=== PATIENT | male | born 1935 | race Caucasian/White ===

== ENCOUNTER 2018-05-19 17:23 | Inpatient (IN) | payer OTHER ==
--- NOTE | 2018-05-19 17:33 | PDOC ---
History of Present Illness - General Chief Complaint: Respiratory Distress Stated Complaint: REPIRATORY DISTRESS Time Seen by Provider: 05/19/18 17:32 - History of Present Illness Initial Comments: The patient is a 83 year old male with PMH of HTN, AFIB, heart failure, COPD ( Home BIPap), GERD, and dysphagia sent in from [facility] for respiratory distress while on his usual BiPAP. He presented to our EER in severe respiratory distress and SATing in the low 90s on is Bipap, he was also in AFib with RVR. He was very confused when he came into our ED and unable to provide history. His nephew and POA did indicate that he is DNR/ DNI over the phone. No CO report of fevers, chills, chest pain, or other symptoms. 05/19/18 18:40 Past History - Past Medical History Allergies/Adverse Reactions: Allergies Allergy/AdvReac Type Severity Reaction Status Date / Time No Known Allergies Allergy Verified 05/19/18 17:33 Home Medications: Ambulatory Orders Acetaminophen [Tylenol] 650 mg PO QID PRN 05/19/18 Apixaban [Eliquis -] 5 mg PO BID 05/19/18 Aspirin [Aspirin EC] 81 mg PO DAILY 05/19/18 Atorvastatin Ca [Lipitor] 80 mg PO HS 05/19/18 Budesonide 1 mg IH BID 05/19/18 Docusate Sodium [Colace] 300 mg PO BID 05/19/18 Famotidine [Pepcid] 20 mg PO BID 05/19/18 Furosemide [Lasix] 40 mg PO BID 05/19/18 Insulin Aspart [Novolog] 0 unit SQ ASDIR 05/19/18 Insulin Glargine,Hum.rec.anlog [Lantus Solostar] 25 unit SQ DAILY 05/19/18 Magnesium 400 mg PO BID 05/19/18 Methimazole 5 mg PO DAILY 05/19/18 Metoprolol Tartrate 25 mg PO BID 05/19/18 Multivitamin [Multiple Vitamins] 1 each PO DAILY 05/19/18 Nystatin Cream [Mycostatin Cream -] 1 applic TP BID 05/19/18 Potassium Chloride [K-Dur -] 20 meq PO DAILY 05/19/18 Sennosides [Senna] 17.2 mg PO BID 05/19/18 Review of Systems - Review of Systems Able to Perform ROS?: No (altered) *Physical Exam - Physical Exam General Appearance: Yes: Nourished, Appropriately Dressed, Apparent Distress, Moderate Distress HEENT: positive: EOMI, ANTWON, Normal ENT Inspection, Normal Voice Neck: positive: Trachea midline, Normal Thyroid, Supple. negative: Tender, Rigid Respiratory/Chest: positive: Respiratory Distress, Accessory Muscle Use, Labored Respiration, Rapid RR, Decreased Breath Sounds, Wheezing. negative: Chest Tender, Lungs Clear, Normal Breath Sounds Cardiovascular: positive: Tachycardia, Irregularly Irregular Gastrointestinal/Abdominal: positive: Normal Bowel Sounds, Flat, Soft Lymphatic: negative: Adenopathy, Tenderness Musculoskeletal: positive: Normal Inspection. negative: Decreased Range of Motion Extremity: positive: Normal Capillary Refill, Normal Inspection, Normal Range of Motion. negative: Tender Integumentary: positive: Normal Color, Dry, Warm Neurologic: positive: Alert, Normal Mood/Affect, Normal Response, Motor Strength 5/5. negative: Fully Oriented (AO to person) ED Treatment Course - LABORATORY CBC & Chemistry Diagram: 05/20/18 05:30 05/20/18 05:30 Medical Decision Making - Medical Decision Making 83 year old male with PMH of COPD presenting with acute hypoxic respiratory failure and suspected CO2 retention. He improved significantly on BiPAP settings and his repeat mental exam was AOx2 (person and time). ABG corroborates hypercarbic respiratory failure with possible CO2 narcosis. He is DNR/ DNI per his proxy/ nephew over the phone. Labs not corroborating infectious pathology. Patient pending telemetry admission on sign out to Dr. Ni. 05/19/18 18:46 *DC/Admit/Observation/Transfer Diagnosis at time of Disposition: Hypercapnic respiratory failure Qualifiers: Chronicity: acute Qualified Code(s): J96.02 - Acute respiratory failure with hypercapnia CHF (congestive heart failure) Qualifiers: Heart failure type: unspecified Heart failure chronicity: acute on chronic Qualified Code(s): I50.9 - Heart failure, unspecified UTI (urinary tract infection) Qualifiers: Urinary tract infection type: site unspecified Hematuria presence: without hematuria Qualified Code(s): N39.0 - Urinary tract infection, site not specified - Discharge Dispostion Condition at time of disposition: Guarded Decision to Admit order: Yes - Referrals - Patient Instructions - Post Discharge Activity
--- NOTE | 2018-05-19 17:33 | PDOC ---
Attending Attestation - HPI HPI: 05/19/18 17:51 The patient is a 83 year old male with a PMH of HTN, AFIB, heart failure, COPD, GERD, and dysphagia sent in from [facility] for respiratory distress on BiPAP. Patient was found to be satting in the 80s at the DC and came up to the 90s before leaving the DC. Patient is unable to provide any further history. - Physicial Exam PE: 05/19/18 17:51 ADULT PHYSICAL EXAM Constitutional: Awake, alert, oriented x1 (to person). (+) In respiratory stress. (+) Pale. Head: Normocephalic. Atraumatic Eyes: PERRL. EOMI. Conjunctivae are not pale. ENT: Mucous membranes are moist and intact. Posterior pharynx without exudates or erythema. Uvula midline. Neck: Supple. Full ROM. No lymphadenopathy. Cardiovascular: (+) Irregular rate and rhythm. S1, S2 regular. Distal pulses are 2+ and symmetric. Pulmonary/Chest: (+) In respiratory distress. (+) Tachypneic. Abdominal: Soft and non-distended. There is no tenderness. No rebound, guarding or rigidity. (+) Peg tube in place, no surrounding erythema or drainage. Musculoskeletal: (+) Trace edema in the right lower extremity and 1+ pitting edema in the left lower extremity. Skin: Skin is warm and dry. No petechiae. No purpura. Neurological: Alert and oriented to person. Cranial nerves II-XII are grossly intact. Normal speech. Strength is grossly symmetric. No sensory deficits. Psychiatric: Good eye contact. Normal interaction, affect and behavior. <Ana Laura Vega - Last Filed: 05/19/18 17:54> - Resident Resident Name: Jovita Hoffmann - ED Attending Attestation I have performed the following: I have examined & evaluated the patient, The case was reviewed & discussed with the resident, I agree w/resident's findings & plan, Exceptions are as noted - Critical Care Time Total Critical Care Time: 35 Critical Care Statement: The care of this patient involved high complexity decision making to prevent further life threatening deterioration of the patient 's condition and/or to evaluate & treat vital organ system(s) failure or risk of failure. - Medical Decision Making 05/19/18 17:33 IDr. Cyndy, DO, attest that this document has been prepared under my direction and personally reviewed by me in its entirety. I further attest, that it accurately reflects all work, treatment, procedures and medical decision -making performed by me. 05/19/18 17:45 a/p: 83yo male from [facility] with afib rvr and resp distress -per notes, pulse ox 80s at [facility], arrives with medics on bipap -pt with hx of copd, resp distress, resp failure -pt arrives aaox1 -pt in afib rvr and copd exacerbation -labs, ekg, cxr, abg -started on bipap upon arrival, IV placed -given duoneb upon arrival for resp distress -concern for copd exacerbation, afib rvr -will give av isidro blocking agent -pt will need admission -will send cultures 05/19/18 17:51 cxr shows acute pulm edema 05/19/18 17:58 re-eval: pt feeling better HR 98 after cardizem breathing improved, 96% on bipap pt more awake, aaox2 - person and time per nephew who is POA discussion with the resident, pt is DNR/I 05/19/18 18:52 pt with hypercapnic resp failure better on bipap jvd and pitting edema- chf exacerbation 05/19/18 20:24 nephew at the bedside who completed DNR/I paperwork 05/19/18 20:24 pt feeling much better UTI on labs poss underlying pna on cxr- broad spectrum abx ordered recent stent placed on NYP- nephew provided dc paperwork 05/19/18 20:40 case discussed with [employer] from [facility] who accepts pt to service <Cyndy Ni - Last Filed: 05/19/18 20:45> *DC/Admit/Observation/Transfer <Ana Laura Vega - Last Filed: 05/19/18 17:54> - Discharge Dispostion Decision to Admit order: Yes <Cyndy Ni - Last Filed: 05/19/18 20:45> Diagnosis at time of Disposition: Hypercapnic respiratory failure, CHF (congestive heart failure), UTI (urinary tract infection) - Discharge Dispostion Condition at time of disposition: Guarded - Referrals Referrals: Eri Garcia MD [Primary Care Provider] - - Patient Instructions - Post Discharge Activity Heart Score/ECG Review - ECG Intrepretation Comment:: 05/19/18 17:47 afib at 124, nl axis, st depression/t wave inversins lateral leads, abnl ekg <Cyndy Ni - Last Filed: 05/19/18 20:45>
[2018-05-19] MEDS ORDERED: methylPREDNISolone NA SUCC 125 MG/2 ML VIAL IVPB ONE (17:43)
[2018-05-19] MEDS ORDERED: ALBUTEROL SO4 2.5/IPRATROPIUM 0.5 INH SOL 3 ML VIAL.NEB. NEB ONE (17:43)
[2018-05-19] MEDS ORDERED: dilTIAZem HCL 125 MG/25 ML - 25 ML VIAL ONE (17:45)
[2018-05-19] MEDS ORDERED: methylPREDNISolone NA SUCC 125 MG/2 ML VIAL ONE (17:45)
[2018-05-19] MEDS ORDERED: FUROSEMIDE 40 MG/4 ML INJECTABLE VIAL IVPUSH ONE (17:51)
[2018-05-19 17:55] LABS: ARTERIAL BLD GAS O2 SATURATION 93.7 % (95-98); ARTERIAL BLOOD GAS BASE EXCESS 4.1 meq/l (-2-2); ARTERIAL BLOOD GAS PCO2 68.1 mmHg (35-45); ARTERIAL BLOOD GAS PO2 77.6 mmHg (80-105); ARTERIAL BLOOD GAS pH 7.29 (7.35-7.45)
[2018-05-19 17:59] LABS: ALLENS TEST POSITIVE
[2018-05-19] MEDS ORDERED: FUROSEMIDE 40 MG/4 ML INJECTABLE VIAL ONE (18:02)
[2018-05-19 18:34] LABS: BASO % 0.6 % (0-2.0); EOS % 3.8 % (0-4.5); HEMOGLOBIN 11.1 GM/dL (11.7-16.9); LYMPH % 16.3 % (8-40); MCH 29.9 pg (25.7-33.7); MCHC 31.7 g/dl (32.0-35.9); MEAN CELL VOLUME 94.4 fl (80-96); MEAN PLT VOLUME 9.3 fl (7.5-11.1); MONO % 6.5 % (3.8-10.2); NEUT % 72.8 % (42.8-82.8); PLATELET COUNT 232 K/MM3 (134-434); RBC 3.71 M/mm3 (4.00-5.60); RDW 17.9 % (11.9-15.9); WHITE BLOOD COUNT 7.9 K/mm3 (4.0-10.0)
[2018-05-19] MEDS ORDERED: dilTIAZem HCL 50 MG/10 ML - 10 ML VIAL IVPUSH ONE (18:35)
[2018-05-19 18:41] LABS: EPI CELLS 1.4 /HPF (0-5/HPF); PH,URINE 5.5 (5.0-8.0); URINE APPEARANCE TURBID; URINE BACTERIA 2198.6 /hpf (NEGATIVE); URINE BILIRUBIN NEGATIVE (NEGATIVE); URINE CASTS 1 /hpf (0-8); URINE COLOR YELLOW; URINE GLUCOSE (UA) NEGATIVE (NEGATIVE); URINE KETONE NEGATIVE (NEGATIVE); URINE LEUK ESTERASE 3+ (NEGATIVE); URINE NITRITE POSITIVE (NEGATIVE); URINE PROTEIN TRACE (NEGATIVE); URINE RBC 23 /hpf (0-4); URINE UROBILINOGEN 0.2 mg/dL (0.2-1.0); URINE WBC 613 /hpf (0-5)
[2018-05-19 18:49] LABS: INR 1.48 (0.83-1.09); PROTHROMBIN TIME (PATIENT) 17.5 SEC (9.7-13.0)
[2018-05-19 18:51] LABS: ACTIVATED PTT 36.4 SECONDS (25.2-36.5)
[2018-05-19 19:16] LABS: ALBUMIN 3.1 g/dl (3.4-5.0); ALK PHOS 59 U/L (45-117); ANION GAP 5 MMOL/L (8-16); BILIRUBIN,TOTAL 0.2 mg/dL (0.2-1); BLOOD UREA NITROGEN 19 mg/dL (7-18); CALCIUM 8.2 mg/dL (8.5-10.1); CHLORIDE 102 mmol/L (98-107); CO2 36 mmol/L (21-32); CREATININE 1.1 mg/dL (0.55-1.3); MAGNESIUM 2.6 mg/dL (1.8-2.4); N-TERMINAL BNP 1474.7 pg/ml (5-450); POTASSIUM 4.7 mmol/L (3.5-5.1); SGOT/AST 25 U/L (15-37); SGPT/ALT 34 U/L (13-61); SODIUM 143 mmol/L (136-145); TOT PROT 6.7 g/dl (6.4-8.2)
[2018-05-19 19:30] LABS: GLUCOSE,RANDOM 301 mg/dL (74-106)
[2018-05-19] MEDS ORDERED: VANCOMYCIN 1 GM in D5W (PRE-DOCKED) 1,000 MG/250 ML IVPB ONE (20:02)
[2018-05-19] MEDS ORDERED: PIPERACILLIN/TAZOB 4.5 GM 4.5 GM in DEXTROSE 5%-WATER 100 ML IVPB ONE (20:02)
[2018-05-19] MEDS ORDERED: VANCOMYCIN 1 GRAM (PRE-DOCKED) 1,000 MG/250 ML BAG IVPB ONE (20:15)
[2018-05-19] MEDS ORDERED: PIPERACILLIN/TAZOB 4.5 GM 4.5 GM/100 ML BAG IVPB ONE (20:15)
[2018-05-19 21:08] LABS: ARTERIAL BLD GAS O2 SATURATION 98.8 % (95-98); ARTERIAL BLOOD GAS BASE EXCESS 6.1 meq/l (-2-2); ARTERIAL BLOOD GAS PCO2 61.2 mmHg (35-45); ARTERIAL BLOOD GAS PO2 120 mmHg (80-105); ARTERIAL BLOOD GAS pH 7.34 (7.35-7.45)
[2018-05-19 21:09] LABS: ALLENS TEST POSITIVE; CARBOXYHEMOGLOBIN 1.2 % (0-2)
[2018-05-20] MEDS ORDERED: LISINOPRIL 20 MG TABLET (FP) ONE (00:04)
[2018-05-20] MEDS ORDERED: MAGNESIUM OXIDE 400 MG TABLET (FP) ONE (00:09)
[2018-05-20] MEDS ORDERED: APIXABAN 5 MG TABLET PO ONE (00:09)
[2018-05-20] MEDS ORDERED: DOCUSATE SODIUM 100 MG CAPSULE (FP) PO ONE (00:10)
[2018-05-20] MEDS ORDERED: METOPROLOL TARTRATE 25 MG TABLET (FP) ONE (00:10)
[2018-05-20] MEDS: DOCUSATE SODIUM 100 MG CAPSULE (FP) PO SCH ×3 (00:29→23:48)
[2018-05-20] MEDS: ATORVASTATIN CA 80 MG TABLET (FP) PO SCH ×2 (00:29→23:49)
[2018-05-20] MEDS: METOPROLOL TARTRATE 25 MG TABLET (FP) PO SCH ×3 (00:29→23:48)
[2018-05-20] MEDS: MAGNESIUM OXIDE 400 MG TABLET (FP) PO SCH ×3 (00:29→23:48)
[2018-05-20] MEDS: APIXABAN 5 MG TABLET PO SCH ×3 (00:29→23:48)
[2018-05-20] MEDS: NYSTATIN 100,000 UNIT/GM TOPICAL CREAM 15 GM TUBE TP SCH ×3 (00:29→23:49)
--- NOTE | 2018-05-20 00:34 | HP ---
CHIEF COMPLAINT: here from [facility] for shortness of breath PCP: HISTORY OF PRESENT ILLNESS: 83 year old male with past medical history of hypertension, atrial fibrillation (on eliquis),congestive heart failure(diastolic versus systolic unknown) , COPD , GERD, and dysphagia who presents from [facility] for respiratory distress with hypoxia. Patient was found to have shortness of breath with hypoxia with oxygen saturation in the 80's in the [place]. Patient is a poor historian and unable to provide a history. Upon presentation he was found to be in atrial fibrillation with RVR and acute hypercapnic respiratory failure with hypoxia requiring bipap with improvement in shortness of breath and oxygen saturations. Labs notable for bNP of 1474. He was give duo nebulizer treatment, one dosage of IV lasix and IV methylprednisolone. He was also found to have a UTI and treated to Vancomycin and zosyn. He is being admitted to telemetry for further medical and cardiac management. Recent Travel: denies PAST MEDICAL HISTORY: as above PAST SURGICAL HISTORY: none Social History: Smoking:denies Alcohol:denies Drugs: denies Family History:noncontributory Allergies No Known Allergies Allergy (Verified 05/19/18 17:33) HOME MEDICATIONS: Home Medications Medication Instructions Recorded Acetaminophen [Tylenol] 650 mg PO QID PRN 05/19/18 Apixaban [Eliquis -] 5 mg PO BID 05/19/18 Aspirin [Aspirin EC] 81 mg PO DAILY 05/19/18 Atorvastatin Ca [Lipitor] 80 mg PO HS 05/19/18 Budesonide 1 mg IH BID 05/19/18 Docusate Sodium [Colace] 300 mg PO BID 05/19/18 Famotidine [Pepcid] 20 mg PO BID 05/19/18 Furosemide [Lasix] 40 mg PO BID 05/19/18 Insulin Aspart [Novolog] 0 unit SQ ASDIR 05/19/18 Insulin Glargine,Hum.rec.anlog 25 unit SQ DAILY 05/19/18 [Lantus Solostar] Magnesium 400 mg PO BID 05/19/18 Methimazole 5 mg PO DAILY 05/19/18 Metoprolol Tartrate 25 mg PO BID 05/19/18 Multivitamin [Multiple Vitamins] 1 each PO DAILY 05/19/18 Nystatin Cream [Mycostatin Cream -] 1 applic TP BID 05/19/18 Potassium Chloride [K-Dur -] 20 meq PO DAILY 05/19/18 Sennosides [Senna] 17.2 mg PO BID 05/19/18 REVIEW OF SYSTEMS CONSTITUTIONAL: Absent: fever, chills, diaphoresis, generalized weakness, malaise, loss of appetite, weight change HEENT: Absent: rhinorrhea, nasal congestion, throat pain, throat swelling, difficulty swallowing, mouth swelling, ear pain, eye pain, visual changes CARDIOVASCULAR: Absent: chest pain, syncope, palpitations, irregular heart rate, lightheadedness , peripheral edema RESPIRATORY: Absent: cough, shortness of breath, dyspnea with exertion, orthopnea, wheezing, stridor, hemoptysis GASTROINTESTINAL: Absent: abdominal pain, abdominal distension, nausea, vomiting, diarrhea, constipation, melena, hematochezia GENITOURINARY: Absent: dysuria, frequency, urgency, hesitancy, hematuria, flank pain, genital pain MUSCULOSKELETAL: Absent: myalgia, arthralgia, joint swelling, back pain, neck pain SKIN: Absent: rash, itching, pallor HEMATOLOGIC/IMMUNOLOGIC: Absent: easy bleeding, easy bruising, lymphadenopathy, frequent infections ENDOCRINE: Absent: unexplained weight gain, unexplained weight loss, heat intolerance, cold intolerance NEUROLOGIC: Absent: headache, focal weakness or paresthesias, dizziness, unsteady gait, seizure, mental status changes, bladder or bowel incontinence PSYCHIATRIC: Absent: anxiety, depression, suicidal or homicidal ideation, hallucinations. PHYSICAL EXAMINATION Vital Signs - 24 hr 05/19/18 05/19/18 05/19/18 17:25 17:28 17:42 Temperature 99.0 F Pulse Rate 146 H Pulse Rate [ 132 H Apical] Respiratory 30 H 24 H Rate Blood Pressure 124/99 Blood Pressure [Left Arm] O2 Sat by Pulse 99 88 L Oximetry (%) 05/19/18 05/19/18 05/19/18 17:48 17:55 18:00 Temperature Pulse Rate Pulse Rate [ 98 H Apical] Respiratory 22 H Rate Blood Pressure Blood Pressure 115/72 [Left Arm] O2 Sat by Pulse 99 99 93 L Oximetry (%) 05/19/18 05/19/18 05/19/18 18:25 20:19 23:04 Temperature Pulse Rate Pulse Rate [ 84 Apical] Respiratory 22 H Rate Blood Pressure Blood Pressure 121/70 [Left Arm] O2 Sat by Pulse 99 100 96 Oximetry (%) GENERAL: awake, alert, and oriented to self and able to tell me who the president is, unable to tell me where he is HEAD: normal EYES: pupils equal, round and reactive to light EARS, NOSE, THROAT: ears normal, nares patent, oropharynx clear without exudates NECK: normal range of motion LUNGS: dimished breath sounds no rales no wheezing no use of accessory muscles HEART: irregular rate and rhythm, normal S1 and S2 ABDOMEN: soft, nontender, not distended, normoactive bowel sounds, no guarding MUSCULOSKELETAL: limited range of motion due to wekness UPPER EXTREMITIES: 2+ pulses, warm, well-perfused no cyanosis LOWER EXTREMITIES: no pitting edema cool to touch NEUROLOGICAL: no neuro focal deficits PSYCHIATRIC: appears appropriate SKIN: dry, normal turgor, no rashes or lesions noted, normal capillary refill. Laboratory Results - last 24 hr 05/19/18 05/19/18 05/19/18 17:30 17:30 17:30 WBC 7.9 RBC 3.71 L Hgb 11.1 L Hct 35.0 L MCV 94.4 MCH 29.9 MCHC 31.7 L RDW 17.9 H Plt Count 232 MPV 9.3 Absolute Neuts (auto) 5.8 Neutrophils % 72.8 Lymphocytes % 16.3 Monocytes % 6.5 Eosinophils % 3.8 Basophils % 0.6 Nucleated RBC % 0 PT with INR 17.50 H INR 1.48 H PTT (Actin FS) 36.4 Anticoagulation Therapy Puncture Site ABG pH ABG pCO2 at Pt Temp ABG pO2 at Pt Temp ABG HCO3 ABG O2 Sat (Measured) ABG O2 Content ABG Base Excess Jayme Test Carboxyhemoglobin Methemoglobin O2 Delivery Device Oxygen Flow Rate Vent Mode Vent Rate Mechanical Rate Pressure Support Vent Sodium Potassium Chloride Carbon Dioxide Anion Gap BUN Creatinine Creat Clearance w eGFR Random Glucose Lactic Acid 1.8 Calcium Magnesium Total Bilirubin AST ALT Alkaline Phosphatase Creatine Kinase Troponin I B-Natriuretic Peptide Total Protein Albumin Urine Color Urine Appearance Urine pH Ur Specific Elkins Urine Protein Urine Glucose (UA) Urine Ketones Urine Blood Urine Nitrite Urine Bilirubin Urine Urobilinogen Ur Leukocyte Esterase Urine WBC (Auto) Urine RBC (Auto) Urine Casts (Auto) U Epithel Cells (Auto) Urine Bacteria (Auto) 04/10/19 04/10/19 04/10/19 17:30 17:30 17:42 WBC RBC Hgb Hct MCV MCH MCHC RDW Plt Count MPV Absolute Neuts (auto) Neutrophils % Lymphocytes % Monocytes % Eosinophils % Basophils % Nucleated RBC % PT with INR INR PTT (Actin FS) Anticoagulation Therapy No Result Required. Puncture Site Right radial ABG pH 7.29 L ABG pCO2 at Pt Temp 68.1 H ABG pO2 at Pt Temp 77.6 L ABG HCO3 31.9 H ABG O2 Sat (Measured) 93.7 L ABG O2 Content 15.1 ABG Base Excess 4.1 H Jayme Test Positive Carboxyhemoglobin 1.0 Methemoglobin 0.1 O2 Delivery Device No Result Required. Oxygen Flow Rate Yes Vent Mode No Result Required. Vent Rate No Result Required. Mechanical Rate No Result Required. Pressure Support Vent No Result Required. Sodium 143 Potassium 4.7 Chloride 102 Carbon Dioxide 36 H Anion Gap 5 L BUN 19 H Creatinine 1.1 Creat Clearance w eGFR 63.62 Random Glucose 301 H* Lactic Acid Calcium 8.2 L Magnesium 2.6 H Total Bilirubin 0.2 AST 25 ALT 34 Alkaline Phosphatase 59 Creatine Kinase 66 Troponin I 0.04 B-Natriuretic Peptide 1474.7 H Total Protein 6.7 Albumin 3.1 L Urine Color Yellow Urine Appearance Turbid Urine pH 5.5 Ur Specific Elkins 1.012 Urine Protein Trace Urine Glucose (UA) Negative Urine Ketones Negative Urine Blood 2+ H Urine Nitrite Positive H Urine Bilirubin Negative Urine Urobilinogen 0.2 Ur Leukocyte Esterase 3+ H Urine WBC (Auto) 613 Urine RBC (Auto) 23 Urine Casts (Auto) 1 U Epithel Cells (Auto) 1.4 Urine Bacteria (Auto) 2198.6 05/19/18 20:00 WBC RBC Hgb Hct MCV MCH MCHC RDW Plt Count MPV Absolute Neuts (auto) Neutrophils % Lymphocytes % Monocytes % Eosinophils % Basophils % Nucleated RBC % PT with INR INR PTT (Actin FS) Anticoagulation Therapy No Result Required. Puncture Site Right brachial ABG pH 7.34 L ABG pCO2 at Pt Temp 61.2 H ABG pO2 at Pt Temp 120 H ABG HCO3 32.5 H ABG O2 Sat (Measured) 98.8 H ABG O2 Content 50.0 H ABG Base Excess 6.1 H Jayme Test Positive Carboxyhemoglobin 1.2 Methemoglobin 0.2 O2 Delivery Device No Result Required. Oxygen Flow Rate Yes Vent Mode No Result Required. Vent Rate No Result Required. Mechanical Rate No Result Required. Pressure Support Vent No Result Required. Sodium Potassium Chloride Carbon Dioxide Anion Gap BUN Creatinine Creat Clearance w eGFR Random Glucose Lactic Acid Calcium Magnesium Total Bilirubin AST ALT Alkaline Phosphatase Creatine Kinase Troponin I B-Natriuretic Peptide Total Protein Albumin Urine Color Urine Appearance Urine pH Ur Specific Elkins Urine Protein Urine Glucose (UA) Urine Ketones Urine Blood Urine Nitrite Urine Bilirubin Urine Urobilinogen Ur Leukocyte Esterase Urine WBC (Auto) Urine RBC (Auto) Urine Casts (Auto) U Epithel Cells (Auto) Urine Bacteria (Auto) ASSESSMENT/PLAN: 83 year old male with past medical history of hypertension, atrial fibrillation (on eliquis),congestive heart failure(diastolic versus systolic unknown) , COPD , GERD, and dysphagia who presents from [facility] for respiratory distress with hypoxia. Acute hypercapnic respiratory failure with hypoxia in setting of significantly elevated BNP. Patient required bipap with improvement in shortness of breath and oxygen saturations. CXR with congestive changes and superimposed infiltrate and fluid. Pulmonary consulted - Dr. Hernandez . Fluid Overload BNP elevated at 1474. He received one dosage of IV lasix 40mg. Continue with IV lasix 40mg twice daily w/ close monitoring of renal studies and electrolytes. Check echocardiogram. Cardiology consulted-Dr. Gallardo. Atrial Fibrillation (Chronic) Rate controlled on metoprolol tartrate. Continue eliquis for anticoagulation. TSH pending. UTI Afebrile, normal creatinine, WBC and lactic acid level. Received one dosage of IV vancomycin and pippercillin. Patient has a terrell which was placed in ER for strict I&O's. Continue with IV zosyn Urine and blood cultures pending. ID- Dr. Douglas consulted. DM/Hyperglycemia Accucheks before meals and at bedtime. Continue w/insulin (levimer) 25Units before bedtime and novolog as per SSI. DVT Prophylaxis Patient is on systemic anticoagulation, SCD's Patient is DNR/DNI Visit type - Emergency Visit Emergency Visit: No - New Patient This patient is new to me today: Yes Date on this admission: 05/20/18 - Critical Care Critical Care patient: No
[2018-05-20] MEDS ORDERED: ALBUTEROL SO4 0.083% IH SOL 2.5 MG/3 ML VIAL.NEB. NEB PRN (01:22)
[2018-05-20] MEDS ORDERED: PIPERACILLIN/TAZOB 2.25 GM 2.25 GM/50 ML BAG IVPB ONE ×2 (03:10→10:50)
[2018-05-20] MEDS: PIPERACILLIN/TAZOB 2.25 GM 2.25 GM in DEXTROSE 5%-WATER - 50 ML IVPB SCH ×3 (03:21→15:56)
[2018-05-20 06:13] LABS: BASO % 0.2 % (0-2.0); HEMATOCRIT 31.4 % (35.4-49); HEMOGLOBIN 10.3 GM/dL (11.7-16.9); MCH 30.4 pg (25.7-33.7); MCHC 32.9 g/dl (32.0-35.9); MEAN CELL VOLUME 92.5 fl (80-96); MEAN PLT VOLUME 8.9 fl (7.5-11.1); MONO % 1.5 % (3.8-10.2); NEUT % 91.3 % (42.8-82.8); PLATELET COUNT 206 K/MM3 (134-434); RBC 3.39 M/mm3 (4.00-5.60); RDW 17.2 % (11.9-15.9); WHITE BLOOD COUNT 7.5 K/mm3 (4.0-10.0)
[2018-05-20 06:47] LABS: ANION GAP 5 MMOL/L (8-16); BLOOD UREA NITROGEN 19 mg/dL (7-18); CALCIUM 8.1 mg/dL (8.5-10.1); CHLORIDE 103 mmol/L (98-107); CO2 35 mmol/L (21-32); GLUCOSE,RANDOM 274 mg/dL (74-106); MAGNESIUM 2.4 mg/dL (1.8-2.4); POTASSIUM 4.5 mmol/L (3.5-5.1); SODIUM 143 mmol/L (136-145)
[2018-05-20] MEDS ORDERED: FUROSEMIDE 40 MG/4 ML INJECTABLE VIAL ONE ×2 (06:59→13:45)
[2018-05-20] MEDS ORDERED: INSULIN (LEVEMIR) 100 UNITS/ML UNITS SQ ONE (07:00)
[2018-05-20] MEDS: INSULIN (LEVEMIR) 100 UNITS/ML UNITS SQ SCH (07:02)
[2018-05-20] MEDS: FUROSEMIDE 40 MG/4 ML INJECTABLE VIAL IVPUSH SCH ×2 (07:02→13:42)
[2018-05-20] MEDS ORDERED: BUDESONIDE 0.5 MG/2 ML INH SUSP VIAL NEB SCH (08:00)
[2018-05-20] MEDS: ASPIRIN COATED 81 MG TABLET.EC PO SCH (09:55)
[2018-05-20] MEDS: POTASSIUM CHLORIDE TABS 20 MEQ TABLET.ER (FP) PO SCH (09:56)
[2018-05-20] MEDS: PANTOPRAZOLE 40 MG TABLET (FP) PO SCH (09:57)
[2018-05-20] MEDS: MULTIVITAMINS (DAILY MVI) TABLET (FP) PO SCH (09:57)
[2018-05-20] MEDS ORDERED: METHIMAZOLE 5 MG TABLET (FP) PO SCH (10:00)
[2018-05-20 11:09] LABS: ANISOCYTOSIS 1+; MACROCYTOSIS 1+; OVALOCYTE 1+; PLATELET ESTIMATE NORMAL
--- NOTE | 2018-05-20 11:09 | PN ---
Progress Note (short form) - Note Progress Note: Events noted spoke with Dr Curry Feels fine Pleasant Uses BIPAP at night in the NH No chest pain or SOB no dysuria Vital Signs - 24 hr 05/19/18 05/19/18 05/19/18 17:25 17:27 17:28 Temperature 98.1 F Pulse Rate 146 H Pulse Rate [ 89 Apical] Respiratory 23 H 30 H Rate Blood Pressure 124/99 Blood Pressure 100/67 [Left Arm] O2 Sat by Pulse 99 98 88 L Oximetry (%) 05/19/18 05/19/18 05/19/18 17:42 17:48 17:55 Temperature 99.0 F Pulse Rate Pulse Rate [ 132 H 98 H Apical] Respiratory 24 H 22 H Rate Blood Pressure Blood Pressure 115/72 [Left Arm] O2 Sat by Pulse 99 99 Oximetry (%) 05/19/18 05/19/18 05/19/18 18:00 18:25 20:19 Temperature Pulse Rate Pulse Rate [ 84 Apical] Respiratory 22 H Rate Blood Pressure Blood Pressure 121/70 [Left Arm] O2 Sat by Pulse 93 L 99 100 Oximetry (%) 05/19/18 05/20/18 05/20/18 23:04 01:13 02:58 Temperature Pulse Rate Pulse Rate [ Apical] Respiratory Rate Blood Pressure Blood Pressure [Left Arm] O2 Sat by Pulse 96 100 98 Oximetry (%) 05/20/18 05/20/18 06:02 08:05 Temperature Pulse Rate Pulse Rate [ Apical] Respiratory Rate Blood Pressure Blood Pressure [Left Arm] O2 Sat by Pulse 100 98 Oximetry (%) Current Medications Generic Name Dose Route Start Last Admin Trade Name Freq PRN Reason Stop Dose Admin Albuterol Sulfate 1 amp 05/20/18 01:22 Ventolin 0.083% Nebulizer Soln - NEB Q6H PRN SHORT OF BREATH/WHEEZING Apixaban 5 mg 05/19/18 22:00 05/20/18 09:56 Eliquis - PO 5 mg BID MELLISSA Administration Aspirin 81 mg 05/20/18 10:00 05/20/18 09:55 Ecotrin - PO 81 mg DAILY MELLISSA Administration Atorvastatin Calcium 80 mg 05/19/18 22:00 05/20/18 00:29 Lipitor - PO 80 mg HS MELLISSA Administration Budesonide 1 amp 05/20/18 08:00 Pulmicort 0.5 Mg Nebulizer - NEB RBID [facility] Docusate Sodium 100 mg 05/19/18 22:00 05/20/18 09:55 Colace - PO 100 mg BID MELLISSA Administration Furosemide 40 mg 05/20/18 06:00 05/20/18 07:02 Lasix Injection - IVPUSH 40 mg BID@0600,1400 MELLISSA Administration Piperacillin Sod/Tazobactam 50 mls @ 100 mls/hr 05/21/18 03:00 Sod 2.25 gm/ Dextrose IVPB Q6H-IV MELLISSA Protocol Piperacillin Sod/Tazobactam 50 mls @ 100 mls/hr 05/20/18 03:00 05/20/18 10:49 Sod 2.25 gm/ Dextrose IVPB 05/20/18 21:29 100 mls/hr Q6H-IV MELLISSA Administration Protocol Insulin Detemir 25 units 05/20/18 07:00 05/20/18 07:02 Levemir Vial SQ 25 units DAILY@0700 MELLISSA Administration Magnesium Oxide 400 mg 05/19/18 22:00 05/20/18 09:57 Mag-Ox - PO 400 mg BID MELLISSA Administration Metoprolol Tartrate 25 mg 05/19/18 22:00 05/20/18 09:56 Lopressor - PO 25 mg BID MELLISSA Administration Multivitamins/Minerals/Vitamin C 1 tab 05/20/18 10:00 05/20/18 09:57 Tab-A-Vit - PO 1 tab DAILY MELLISSA Administration Nystatin 1 applic 05/19/18 22:00 05/20/18 09:57 Mycostatin Cream - TP 1 applic BID MELLISSA Administration Pantoprazole Sodium 40 mg 05/20/18 10:00 05/20/18 09:57 Protonix - PO 40 mg DAILY MELLISSA Administration Potassium Chloride 20 meq 05/20/18 10:00 05/20/18 09:56 K-Dur - PO 20 meq DAILY MELLISSA Administration Laboratory Results - last 24 hr 05/19/18 05/19/18 05/19/18 17:30 17:30 17:30 WBC 7.9 RBC 3.71 L Hgb 11.1 L Hct 35.0 L MCV 94.4 MCH 29.9 MCHC 31.7 L RDW 17.9 H Plt Count 232 MPV 9.3 Absolute Neuts (auto) 5.8 Neutrophils % 72.8 Lymphocytes % 16.3 Monocytes % 6.5 Eosinophils % 3.8 Basophils % 0.6 Nucleated RBC % 0 PT with INR 17.50 H INR 1.48 H PTT (Actin FS) 36.4 Anticoagulation Therapy Puncture Site ABG pH ABG pCO2 at Pt Temp ABG pO2 at Pt Temp ABG HCO3 ABG O2 Sat (Measured) ABG O2 Content ABG Base Excess Jayme Test Carboxyhemoglobin Methemoglobin O2 Delivery Device Oxygen Flow Rate Vent Mode Vent Rate Mechanical Rate Pressure Support Vent Sodium Potassium Chloride Carbon Dioxide Anion Gap BUN Creatinine Creat Clearance w eGFR POC Glucometer Random Glucose Hemoglobin A1c % Lactic Acid 1.8 Calcium Magnesium Total Bilirubin AST ALT Alkaline Phosphatase Creatine Kinase Troponin I B-Natriuretic Peptide Total Protein Albumin TSH Urine Color Urine Appearance Urine pH Ur Specific [place] Urine Protein Urine Glucose (UA) Urine Ketones Urine Blood Urine Nitrite Urine Bilirubin Urine Urobilinogen Ur Leukocyte Esterase Urine WBC (Auto) Urine RBC (Auto) Urine Casts (Auto) U Epithel Cells (Auto) Urine Bacteria (Auto) 05/19/18 05/19/18 05/19/18 17:30 17:30 17:42 WBC RBC Hgb Hct MCV MCH MCHC RDW Plt Count MPV Absolute Neuts (auto) Neutrophils % Lymphocytes % Monocytes % Eosinophils % Basophils % Nucleated RBC % PT with INR INR PTT (Actin FS) Anticoagulation Therapy No Result Required. Puncture Site Right radial ABG pH 7.29 L ABG pCO2 at Pt Temp 68.1 H ABG pO2 at Pt Temp 77.6 L ABG HCO3 31.9 H ABG O2 Sat (Measured) 93.7 L ABG O2 Content 15.1 ABG Base Excess 4.1 H Jayme Test Positive Carboxyhemoglobin 1.0 Methemoglobin 0.1 O2 Delivery Device No Result Required. Oxygen Flow Rate Yes Vent Mode No Result Required. Vent Rate No Result Required. Mechanical Rate No Result Required. Pressure Support Vent No Result Required. Sodium 143 Potassium 4.7 Chloride 102 Carbon Dioxide 36 H Anion Gap 5 L BUN 19 H Creatinine 1.1 Creat Clearance w eGFR 63.62 POC Glucometer Random Glucose 301 H* Hemoglobin A1c % Lactic Acid Calcium 8.2 L Magnesium 2.6 H Total Bilirubin 0.2 AST 25 ALT 34 Alkaline Phosphatase 59 Creatine Kinase 66 Troponin I 0.04 B-Natriuretic Peptide 1474.7 H Total Protein 6.7 Albumin 3.1 L TSH Urine Color Yellow Urine Appearance Turbid Urine pH 5.5 Ur Specific [place] 1.012 Urine Protein Trace Urine Glucose (UA) Negative Urine Ketones Negative Urine Blood 2+ H Urine Nitrite Positive H Urine Bilirubin Negative Urine Urobilinogen 0.2 Ur Leukocyte Esterase 3+ H Urine WBC (Auto) 613 Urine RBC (Auto) 23 Urine Casts (Auto) 1 U Epithel Cells (Auto) 1.4 Urine Bacteria (Auto) 2198.6 05/19/18 05/20/18 05/20/18 20:00 05:30 05:30 WBC 7.5 RBC 3.39 L Hgb 10.3 L Hct 31.4 L MCV 92.5 MCH 30.4 MCHC 32.9 RDW 17.2 H Plt Count 206 MPV 8.9 Absolute Neuts (auto) 6.8 Neutrophils % 91.3 H D Lymphocytes % 7.0 L D Monocytes % 1.5 L Eosinophils % 0.0 D Basophils % 0.2 Nucleated RBC % 0 PT with INR INR PTT (Actin FS) Anticoagulation Therapy No Result Required. Puncture Site Right brachial ABG pH 7.34 L ABG pCO2 at Pt Temp 61.2 H ABG pO2 at Pt Temp 120 H ABG HCO3 32.5 H ABG O2 Sat (Measured) 98.8 H ABG O2 Content 50.0 H ABG Base Excess 6.1 H Jayme Test Positive Carboxyhemoglobin 1.2 Methemoglobin 0.2 O2 Delivery Device No Result Required. Oxygen Flow Rate Yes Vent Mode No Result Required. Vent Rate No Result Required. Mechanical Rate No Result Required. Pressure Support Vent No Result Required. Sodium 143 Potassium 4.5 Chloride 103 Carbon Dioxide 35 H Anion Gap 5 L BUN 19 H Creatinine 1.0 Creat Clearance w eGFR 71.02 POC Glucometer Random Glucose 274 H Hemoglobin A1c % Lactic Acid Calcium 8.1 L Magnesium 2.4 Total Bilirubin AST ALT Alkaline Phosphatase Creatine Kinase Troponin I B-Natriuretic Peptide Total Protein Albumin TSH 20.90 H Urine Color Urine Appearance Urine pH Ur Specific [place] Urine Protein Urine Glucose (UA) Urine Ketones Urine Blood Urine Nitrite Urine Bilirubin Urine Urobilinogen Ur Leukocyte Esterase Urine WBC (Auto) Urine RBC (Auto) Urine Casts (Auto) U Epithel Cells (Auto) Urine Bacteria (Auto) 05/20/18 05/20/18 05:30 06:55 WBC RBC Hgb Hct MCV MCH MCHC RDW Plt Count MPV Absolute Neuts (auto) Neutrophils % Lymphocytes % Monocytes % Eosinophils % Basophils % Nucleated RBC % PT with INR INR PTT (Actin FS) Anticoagulation Therapy Puncture Site ABG pH ABG pCO2 at Pt Temp ABG pO2 at Pt Temp ABG HCO3 ABG O2 Sat (Measured) ABG O2 Content ABG Base Excess Jayme Test Carboxyhemoglobin Methemoglobin O2 Delivery Device Oxygen Flow Rate Vent Mode Vent Rate Mechanical Rate Pressure Support Vent Sodium Potassium Chloride Carbon Dioxide Anion Gap BUN Creatinine Creat Clearance w eGFR POC Glucometer 226 Random Glucose Hemoglobin A1c % 7.3 H Lactic Acid Calcium Magnesium Total Bilirubin AST ALT Alkaline Phosphatase Creatine Kinase Troponin I B-Natriuretic Peptide Total Protein Albumin TSH Urine Color Urine Appearance Urine pH Ur Specific [place] Urine Protein Urine Glucose (UA) Urine Ketones Urine Blood Urine Nitrite Urine Bilirubin Urine Urobilinogen Ur Leukocyte Esterase Urine WBC (Auto) Urine RBC (Auto) Urine Casts (Auto) U Epithel Cells (Auto) Urine Bacteria (Auto) S1 S2 Irregular Lungs crackles B/L JVD+ Abd- soft, NT, obese no edema PLAN CHF decompensation UTI HYPOXIC HYPERCAPNEIC RESP FAILURE -BIPAP - IV lasix - IV antibiotics -- cultures pending -- continue with meds -- pt clinically improved with BIPAP and lasix -- DNR/DNI Problem List - Problems (1) CHF (congestive heart failure) Code(s): I50.9 - HEART FAILURE, UNSPECIFIED (2) Hypercapnic respiratory failure Code(s): J96.92 - RESPIRATORY FAILURE, UNSPECIFIED WITH HYPERCAPNIA (3) UTI (urinary tract infection) Code(s): N39.0 - URINARY TRACT INFECTION, SITE NOT SPECIFIED
--- NOTE | 2018-05-20 14:39 | CON.PULM ---
Consult Consult Specialty:: PULMONARY Referred by:: Dr Cooley Reason for Consultation:: shortness of breath - History of Present Illness Chief Complaint: shortness of breath History of Present Illness: 83yo male with h/o HTN, atrial fibrillation, COPD, GERD, CHF who was sent from the [facility] for shortness of breath and hypoxia. States he has been short of breath "for a long time." No chest pain or palpitations. No fevers, chills or sweats. Does report leg swelling but without orthopnea. He is a never smoker. Noted to be in rapid atrial fibrillation and with respiratory acidosis, improved with lasix, medrol and BiPAP. - History Source History Provided By: Patient, Friend, Medical Record Limitations to Obtaining History: Poor Historian - Past Medical History Cardio/Vascular: Yes: AFIB, CHF, HTN Pulmonary: Yes: COPD - Smoking History Smoking history: Unknown if ever smoked Home Medications - Allergies Allergies/Adverse Reactions: Allergies Allergy/AdvReac Type Severity Reaction Status Date / Time No Known Allergies Allergy Verified 05/19/18 17:33 - Home Medications Home Medications: Ambulatory Orders Acetaminophen [Tylenol] 650 mg PO QID PRN 05/19/18 Apixaban [Eliquis -] 5 mg PO BID 05/19/18 Aspirin [Aspirin EC] 81 mg PO DAILY 05/19/18 Atorvastatin Ca [Lipitor] 80 mg PO HS 05/19/18 Budesonide 1 mg IH BID 05/19/18 Docusate Sodium [Colace] 300 mg PO BID 05/19/18 Famotidine [Pepcid] 20 mg PO BID 05/19/18 Furosemide [Lasix] 40 mg PO BID 05/19/18 Insulin Aspart [Novolog] 0 unit SQ ASDIR 05/19/18 Insulin Glargine,Hum.rec.anlog [Lantus Solostar] 25 unit SQ DAILY 05/19/18 Magnesium 400 mg PO BID 05/19/18 Methimazole 5 mg PO DAILY 05/19/18 Metoprolol Tartrate 25 mg PO BID 05/19/18 Multivitamin [Multiple Vitamins] 1 each PO DAILY 05/19/18 Nystatin Cream [Mycostatin Cream -] 1 applic TP BID 05/19/18 Potassium Chloride [K-Dur -] 20 meq PO DAILY 05/19/18 Sennosides [Senna] 17.2 mg PO BID 05/19/18 Review of Systems - Review of Systems Constitutional: reports: Weakness. denies: Fever Eyes: denies: Recent Change in Vision HENT: denies: Nasal Congestion, Throat Pain Neck: denies: Stiffness, Tenderness Cardiovascular: reports: Edema, Shortness of Breath. denies: Chest Pain, Palpitations Respiratory: denies: Cough, Hemoptysis, Wheezing Gastrointestinal: denies: Abdominal Pain, Nausea, Vomiting Genitourinary: denies: Dysuria, Hematuria Neurological: denies: Dizziness, Headache Endocrine: denies: Unexplained Weight Loss Physical Exam Vital Sings: Vital Signs Temperature 99.0 F 05/19/18 17:42 Pulse Rate 84 05/19/18 18:25 Respiratory Rate 22 H 05/19/18 18:25 Blood Pressure 121/70 05/19/18 18:25 O2 Sat by Pulse Oximetry (%) 98 05/20/18 08:05 Constitutional: Yes: Calm Eyes: Yes: Conjunctiva Clear, EOM Intact HENT: Yes: Atraumatic, Normocephalic Neck: Yes: Supple, Trachea Midline Cardiovascular: Yes: Pulse Irregular Respiratory: Yes: Diminished (decreased breath sounds at the bases) ...Clubbing: No Gastrointestinal: Yes: Normal Bowel Sounds, Soft. No: Tenderness Edema: Yes Neurological: Yes: Alert Labs: CBC, BMP 05/20/18 05:30 05/20/18 05:30 ABG Results ABG pH 7.34 (7.35-7.45) L 05/19/18 20:00 ABG pCO2 at Pt Temp 61.2 mmHg (35-45) H 05/19/18 20:00 ABG pO2 at Pt Temp 120 mmHg (80-105) H 05/19/18 20:00 ABG HCO3 32.5 mmol/L (22-27) H 05/19/18 20:00 ABG O2 Sat (Measured) 98.8 % (95-98) H 05/19/18 20:00 ABG O2 Content 50.0 % vol (15-22) H 05/19/18 20:00 ABG Base Excess 6.1 meq/l (-2-2) H 05/19/18 20:00 Imaging - Results Chest X-ray: Report Reviewed, Image Reviewed (pulmonary vascular congestion) Problem List - Problems (1) Acute hypercapnic respiratory failure Code(s): J96.02 - ACUTE RESPIRATORY FAILURE WITH HYPERCAPNIA (2) CHF (congestive heart failure) Code(s): I50.9 - HEART FAILURE, UNSPECIFIED (3) UTI (urinary tract infection) Code(s): N39.0 - URINARY TRACT INFECTION, SITE NOT SPECIFIED Assessment/Plan Decompensated CHF Acute Hypercapneic Respiratory Failure UTI COPD Atrial Fibrillation HTN - IV lasix - monitor urine output, creatinine - daily weights - received medrol in the ER, can defer further steroids at this time - inhaled bronchodilators - antibiotics for UTI - echocardiogram - rate control - continue anticoagulation - O2 to keep Spo2 >90% Thank you for this consult Deep Piper MD
--- NOTE | 2018-05-20 15:41 | ECHO ---
Name: SUDARSHAN GREEN Exam:Adult Echocardiogram Study Date: 05/20/2018 11:50 AM Age: 83 yrs Reason For Study: SOB ELEVATED BNP Height: 73 in Weight: 180 lb BSA: 2.1 m2 MMode/2D Measurements & Calculations IVSd: 1.4 cm Ao root diam: 3.0 cm LVIDd: 3.9 cm LA dimension: 4.4 cm LVIDs: 3.1 cm LVPWd: 1.1 cm EDV(Teich): 66.8 ml LVOT diam: 2.0 cm ESV(Teich): 37.6 ml Doppler Measurements & Calculations MV E max waylon: 79.0 cm/sec Ao V2 max: 376.4 cm/sec MV A max waylon: 20.7 cm/sec Ao max P.8 mmHg MV E/A: 3.8 Ao V2 mean: 270.2 cm/sec MV dec time: 0.20 sec Ao mean P.8 mmHg Ao V2 VTI: 76.6 cm MACY(I,D): 1.1 cm2 AI P1/2t: 511.4 msec MACY(V,D): 1.3 cm2 AI max waylon: 307.0 cm/sec LV V1 max P.0 mmHg AI max P.7 mmHg LV V1 mean P.9 mmHg AI dec slope: 175.8 cm/sec2 LV V1 max: 158.4 cm/sec LV V1 mean: 87.4 cm/sec LV V1 VTI: 26.5 cm MR max waylon: 447.4 cm/sec SV(LVOT): 80.9 ml MR max P.1 mmHg TR max waylon: 268.7 cm/sec PI end-d waylon: 200.6 cm/sec TR max P.6 mmHg Med Peak E' Waylon: 5.3 cm/sec Med E/e': 15.0 Lat Peak E' Waylon: 6.5 cm/sec Lat E/e': 12.2 Procedure A complete two-dimensional transthoracic echocardiogram was performed (2D, M-mode, Doppler and color flow Doppler). Left Ventricle There is mild concentric left ventricular hypertrophy. The left ventricular ejection fraction is norm al. Ejection Fraction = 60-65%. No regional wall motion abnormalities noted. Right Ventricle The right ventricle is normal in size and function. Atria The left atrium is mildly dilated. Right atrial size is normal. Mitral Valve There is mild mitral regurgitation. Tricuspid Valve There is mild tricuspid regurgitation. Right ventricular systolic pressure is normal. Aortic Valve Moderate valvular aortic stenosis. Mild aortic regurgitation. Pulmonic Valve Trace pulmonic valvular regurgitation. Great Vessels The aortic root is normal size. Pericardium/Pleura There is no pericardial effusion. Interpretation Summary There is mild concentric left ventricular hypertrophy. The left ventricular ejection fraction is normal. The right ventricle is normal in size and function. The left atrium is mildly dilated. There is mild mitral regurgitation. There is mild tricuspid regurgitation. Mild aortic regurgitation. Moderate valvular aortic stenosis. Trace pulmonic valvular regurgitation. MD Domingo Grace 05/20/2018 03:41 PM
--- NOTE | 2018-05-20 16:37 | EKG ---
Test Reason : Blood Pressure : / mmHG Vent. Rate : 124 BPM Atrial Rate : 104 BPM P-R Int : 000 ms QRS Dur : 106 ms QT Int : 328 ms P-R-T Axes : 000 -19 122 degrees QTc Int : 471 ms ATRIAL FIBRILLATION WITH RAPID VENTRICULAR RESPONSE ABNORMAL ECG NO PREVIOUS ECGS AVAILABLE Confirmed by MIKA SPICER MD ([id number]) on 05/20/2018 4:37:04 PM Referred By: Confirmed By:MIKA SPICER MD
--- NOTE | 2018-05-20 16:37 | EKG ---
Test Reason : Blood Pressure : / mmHG Vent. Rate : 076 BPM Atrial Rate : 078 BPM P-R Int : 000 ms QRS Dur : 108 ms QT Int : 382 ms P-R-T Axes : 000 -10 116 degrees QTc Int : 429 ms ATRIAL FIBRILLATION INCOMPLETE LEFT BUNDLE BRANCH BLOCK ABNORMAL QRS-T ANGLE, CONSIDER PRIMARY T WAVE ABNORMALITY ABNORMAL ECG WHEN COMPARED WITH ECG OF 19-MAY-2018 17:26, VENT. RATE HAS DECREASED BY 48 BPM Confirmed by MIKA SPICER MD ([id number]) on 05/20/2018 4:36:47 PM Referred By: Confirmed By:MIKA SPICER MD
--- NOTE | 2018-05-20 16:56 | CON.CARD ---
Cardiology Consult (text) - Consultation Consultation Note: cc: sob hpi: 83 m hx htn, hld, afib, dchf, copd, sent from [place] for sob. Pt poor historian. Reports sob for months. No cp palps dizzy loc pnd orthopnea le edema. In er getting iv lasix for chf and abx for pna. pmh: per hpi psh: nc social: no tob fam: no premature cad ros: per hpi; all others normal meds: Home Medications Medication Instructions Recorded Acetaminophen [Tylenol] 650 mg PO QID PRN 05/19/18 Apixaban [Eliquis -] 5 mg PO BID 05/19/18 Aspirin [Aspirin EC] 81 mg PO DAILY 05/19/18 Atorvastatin Ca [Lipitor] 80 mg PO HS 05/19/18 Budesonide 1 mg IH BID 05/19/18 Docusate Sodium [Colace] 300 mg PO BID 05/19/18 Famotidine [Pepcid] 20 mg PO BID 05/19/18 Furosemide [Lasix] 40 mg PO BID 05/19/18 Insulin Aspart [Novolog] 0 unit SQ ASDIR 05/19/18 Insulin Glargine,Hum.rec.anlog 25 unit SQ DAILY 05/19/18 [Lantus Solostar] Magnesium 400 mg PO BID 05/19/18 Methimazole 5 mg PO DAILY 05/19/18 Metoprolol Tartrate 25 mg PO BID 05/19/18 Multivitamin [Multiple Vitamins] 1 each PO DAILY 05/19/18 Nystatin Cream [Mycostatin Cream -] 1 applic TP BID 05/19/18 Potassium Chloride [K-Dur -] 20 meq PO DAILY 05/19/18 Sennosides [Senna] 17.2 mg PO BID 05/19/18 pe: Vital Signs Period Temp Pulse Resp BP Sys/Paz Pulse Ox Last 24 Hr 98.1 F-99.0 F 84-146 19-30 98-124/65-99 88-100 nad no jvd irreg s1s2 no rg, +as murmur scattered rhonchi, nl eff awake alert confused abd nt nd pos bs no jaundice diaphoresis pos dp pt no carotid bruits no le e/c/c Laboratory Last Values WBC 7.5 K/mm3 (4.0-10.0) 05/20/18 05:30 RBC 3.39 M/mm3 (4.00-5.60) L 05/20/18 05:30 Hgb 10.3 GM/dL (11.7-16.9) L 05/20/18 05:30 Hct 31.4 % (35.4-49) L 05/20/18 05:30 MCV 92.5 fl (80-96) 05/20/18 05:30 MCH 30.4 pg (25.7-33.7) 05/20/18 05:30 MCHC 32.9 g/dl (32.0-35.9) 05/20/18 05:30 RDW 17.2 % (11.9-15.9) H 05/20/18 05:30 Plt Count 206 K/MM3 (134-434) 05/20/18 05:30 MPV 8.9 fl (7.5-11.1) 05/20/18 05:30 Absolute Neuts (auto) 6.8 K/mm3 (1.5-8.0) 05/20/18 05:30 Neutrophils % 91.3 % (42.8-82.8) H D 05/20/18 05:30 Neutrophils % (Manual) 91.8 % (42.8-82.8) H 05/20/18 05:30 Band Neutrophils % 2.1 % 05/20/18 05:30 Lymphocytes % 7.0 % (8-40) L D 05/20/18 05:30 Lymphocytes % (Manual) 6.1 % (8-40) L 05/20/18 05:30 Monocytes % 1.5 % (3.8-10.2) L 05/20/18 05:30 Monocytes % (Manual) 0 % (3.8-10.2) L 05/20/18 05:30 Eosinophils % 0.0 % (0-4.5) D 05/20/18 05:30 Eosinophils % (Manual) 0.0 % (0-4.5) 05/20/18 05:30 Basophils % 0.2 % (0-2.0) 05/20/18 05:30 Basophils % (Manual) 0.0 % (0-2.0) 05/20/18 05:30 Myelocytes % (Man) 0 % (0-2) 05/20/18 05:30 Promyelocytes % (Man) 0 % (0-2) 05/20/18 05:30 Blast Cells % (Manual) 0 % (0-0) 05/20/18 05:30 Nucleated RBC % 0 % (0-0) 05/20/18 05:30 Metamyelocytes 0 % (0-2) 05/20/18 05:30 Hypochromia 0 05/20/18 05:30 Platelet Estimate Normal 05/20/18 05:30 Polychromasia 0 05/20/18 05:30 Poikilocytosis 1+ 05/20/18 05:30 Anisocytosis 1+ 05/20/18 05:30 Microcytosis 0 05/20/18 05:30 Macrocytosis 1+ 05/20/18 05:30 Ovalocytes 1+ 05/20/18 05:30 PT with INR 17.50 SEC (9.7-13.0) H 05/19/18 17:30 INR 1.48 (0.83-1.09) H 05/19/18 17:30 PTT (Actin FS) 36.4 SECONDS (25.2-36.5) 05/19/18 17:30 Anticoagulation Therapy No Result Required. 05/19/18 20:00 Puncture Site Right brachial 05/19/18 20:00 ABG pH 7.34 (7.35-7.45) L 05/19/18 20:00 ABG pCO2 at Pt Temp 61.2 mmHg (35-45) H 05/19/18 20:00 ABG pO2 at Pt Temp 120 mmHg (80-105) H 05/19/18 20:00 ABG HCO3 32.5 mmol/L (22-27) H 05/19/18 20:00 ABG O2 Sat (Measured) 98.8 % (95-98) H 05/19/18 20:00 ABG O2 Content 50.0 % vol (15-22) H 05/19/18 20:00 ABG Base Excess 6.1 meq/l (-2-2) H 05/19/18 20:00 Jayme Test Positive 05/19/18 20:00 Carboxyhemoglobin 1.2 % (0-2) 05/19/18 20:00 Methemoglobin 0.2 % (0-2) 05/19/18 20:00 O2 Delivery Device No Result Required. 05/19/18 20:00 Oxygen Flow Rate Yes 05/19/18 20:00 Vent Mode No Result Required. 05/19/18 20:00 Vent Rate No Result Required. 05/19/18 20:00 Mechanical Rate No Result Required. 05/19/18 20:00 Pressure Support Vent No Result Required. 05/19/18 20:00 Sodium 143 mmol/L (136-145) 05/20/18 05:30 Potassium 4.5 mmol/L (3.5-5.1) 05/20/18 05:30 Chloride 103 mmol/L (98-107) 05/20/18 05:30 Carbon Dioxide 35 mmol/L (21-32) H 05/20/18 05:30 Anion Gap 5 MMOL/L (8-16) L 05/20/18 05:30 BUN 19 mg/dL (7-18) H 05/20/18 05:30 Creatinine 1.0 mg/dL (0.55-1.3) 05/20/18 05:30 Creat Clearance w eGFR 71.02 (>60) 05/20/18 05:30 POC Glucometer 226 UNITS (80-120) 05/20/18 06:55 Random Glucose 274 mg/dL (74-106) H 05/20/18 05:30 Hemoglobin A1c % 7.3 % (4.2-6.3) H 05/20/18 05:30 Lactic Acid 1.8 mmol/L (0.4-2.0) 05/19/18 17:30 Calcium 8.1 mg/dL (8.5-10.1) L 05/20/18 05:30 Magnesium 2.4 mg/dL (1.8-2.4) 05/20/18 05:30 Total Bilirubin 0.2 mg/dL (0.2-1) 05/19/18 17:30 AST 25 U/L (15-37) 05/19/18 17:30 ALT 34 U/L (13-61) 05/19/18 17:30 Alkaline Phosphatase 59 U/L (45-117) 05/19/18 17:30 Creatine Kinase 63 U/L (26-308) 05/20/18 13:32 Troponin I 0.05 ng/ml (0.00-0.05) 05/20/18 13:32 B-Natriuretic Peptide 1474.7 pg/ml (5-450) H 05/19/18 17:30 Total Protein 6.7 g/dl (6.4-8.2) 05/19/18 17:30 Albumin 3.1 g/dl (3.4-5.0) L 05/19/18 17:30 TSH 20.90 uIU/ml (0.358-3.74) H 05/20/18 05:30 Free T4 0.30 ng/dl (0.76-1.16) L 05/20/18 13:32 Urine Color Yellow 05/19/18 17:30 Urine Appearance Turbid 05/19/18 17:30 Urine pH 5.5 (5.0-8.0) 05/19/18 17:30 Ur Specific [place] 1.012 (1.010-1.035) 05/19/18 17:30 Urine Protein Trace (NEGATIVE) 05/19/18 17:30 Urine Glucose (UA) Negative (NEGATIVE) 05/19/18 17:30 Urine Ketones Negative (NEGATIVE) 05/19/18 17:30 Urine Blood 2+ (NEGATIVE) H 05/19/18 17:30 Urine Nitrite Positive (NEGATIVE) H 05/19/18 17:30 Urine Bilirubin Negative (NEGATIVE) 05/19/18 17:30 Urine Urobilinogen 0.2 mg/dL (0.2-1.0) 05/19/18 17:30 Ur Leukocyte Esterase 3+ (NEGATIVE) H 05/19/18 17:30 Urine WBC (Auto) 613 /hpf (0-5) 05/19/18 17:30 Urine RBC (Auto) 23 /hpf (0-4) 05/19/18 17:30 Urine Casts (Auto) 1 /hpf (0-8) 05/19/18 17:30 U Epithel Cells (Auto) 1.4 /HPF (0-5/HPF) 05/19/18 17:30 Urine Bacteria (Auto) 2198.6 /hpf (NEGATIVE) 05/19/18 17:30 echo 05/2018: lvh, nl lvef, nl rv, lae, mild ar/tr/mr, mod as cxr: chf ecg: afib, rate controlled, irbbb a/p: 83 m hx htn, hld, afib, dchf, copd, sent from [place] for sob. sob, acute diastolic chf: -mild vol overload, agree with iv lasix. check daily wt, chem7 -no signs acs htn: -cont bb afib: -cont bb for rate control -cont eliquis hld: -cont statin
--- NOTE | 2018-05-20 18:21 | CON.ID ---
Consult Consult Specialty:: infectious diseases Referred by:: hospitalist Reason for Consultation:: confusion,sob - History of Present Illness Chief Complaint: weakness,confusion,sob History of Present Illness: 83 year old male with past medical history of hypertension, atrial fibrillation, congestive heart failure, COPD, GERD, and dysphagia who presents from [facility] for respiratory distress with hypoxia. Patient was found to have shortness of breath with hypoxia with oxygen saturation in the 80's in the [place]. Patient is a poor historian and unable to provide a history. patient was found to be hypoxic and on work up found ot have uti patient was given vanco and zosyn - History Source History Provided By: Medical Record Limitations to Obtaining History: Clinical Condition - Past Medical History Cardio/Vascular: Yes: AFIB, CHF, HTN Pulmonary: Yes: COPD - Smoking History Smoking history: Unknown if ever smoked Home Medications - Allergies Allergies/Adverse Reactions: Allergies Allergy/AdvReac Type Severity Reaction Status Date / Time No Known Allergies Allergy Verified 05/19/18 17:33 - Home Medications Home Medications: Ambulatory Orders Acetaminophen [Tylenol] 650 mg PO QID PRN 05/19/18 Apixaban [Eliquis -] 5 mg PO BID 05/19/18 Aspirin [Aspirin EC] 81 mg PO DAILY 05/19/18 Atorvastatin Ca [Lipitor] 80 mg PO HS 05/19/18 Budesonide 1 mg IH BID 05/19/18 Docusate Sodium [Colace] 300 mg PO BID 05/19/18 Famotidine [Pepcid] 20 mg PO BID 05/19/18 Furosemide [Lasix] 40 mg PO BID 05/19/18 Insulin Aspart [Novolog] 0 unit SQ ASDIR 05/19/18 Insulin Glargine,Hum.rec.anlog [Lantus Solostar] 25 unit SQ DAILY 05/19/18 Magnesium 400 mg PO BID 05/19/18 Methimazole 5 mg PO DAILY 05/19/18 Metoprolol Tartrate 25 mg PO BID 05/19/18 Multivitamin [Multiple Vitamins] 1 each PO DAILY 05/19/18 Nystatin Cream [Mycostatin Cream -] 1 applic TP BID 05/19/18 Potassium Chloride [K-Dur -] 20 meq PO DAILY 05/19/18 Sennosides [Senna] 17.2 mg PO BID 04/10/19 Physical Exam Vital Signs: Vital Signs Temperature 98.1 F 05/20/18 17:50 Pulse Rate 88 05/20/18 17:50 Respiratory Rate 20 05/20/18 17:50 Blood Pressure 100/68 05/20/18 17:50 O2 Sat by Pulse Oximetry (%) 98 05/20/18 09:00 Constitutional: Yes: No Distress, Calm Eyes: Yes: Conjunctiva Clear Neck: Yes: Supple, Trachea Midline Cardiovascular: Yes: Regular Rate and Rhythm Respiratory: Yes: Regular, On BiPap, On Nasal O2 Gastrointestinal: Yes: Normal Bowel Sounds, Soft Musculoskeletal: Yes: WNL Extremities: Yes: WNL Neurological: Yes: Alert, Oriented Psychiatric: Yes: Alert, Oriented Labs: CBC, BMP 05/20/18 05:30 05/20/18 05:30 Imaging - Results Chest X-ray: Report Reviewed, Image Reviewed Assessment/Plan Problem List - Problems (1) CHF (congestive heart failure) Code(s): I50.9 - HEART FAILURE, UNSPECIFIED (2) Hypercapnic respiratory failure Code(s): J96.92 - RESPIRATORY FAILURE, UNSPECIFIED WITH HYPERCAPNIA (3) UTI (urinary tract infection) Code(s): N39.0 - URINARY TRACT INFECTION, SITE NOT SPECIFIED confusion plan will start patient on zosyn await for cx reports to be back rest as per the team resp support
[2018-05-20] MEDS ORDERED: PIPERACILLIN/TAZOB 3.375 GM 3.375 GM/50 ML BAG IVPB ONE (18:47)
[2018-05-20] MEDS: PIPERACILLIN/TAZOB 3.375 GM 3.375 GM in DEXTROSE 5%-WATER - 50 ML IVPB SCH ×2 (18:50→23:48)
[2018-05-20] MEDS: ALBUTEROL SO4 2.5/IPRATROPIUM 0.5 INH SOL 3 ML VIAL.NEB. NEB SCH (20:20)
[2018-05-20] MEDS ORDERED: PIPERACILLIN/TAZOBACTAM 3.375 GM VIAL IVPB ONE (21:36)
[2018-05-20] MEDS ORDERED: DEXTROSE 5%-WATER - 50 ML IVPB ONE (21:37)
[2018-05-21] MEDS ORDERED: PIPERACILLIN/TAZOBACTAM 3.375 GM VIAL IVPB ONE ×3 (02:22→16:52)
[2018-05-21] MEDS ORDERED: DEXTROSE 5%-WATER - 50 ML IVPB ONE ×3 (02:22→16:52)
[2018-05-21] MEDS: PIPERACILLIN/TAZOB 3.375 GM 3.375 GM in DEXTROSE 5%-WATER - 50 ML IVPB SCH ×3 (03:00→17:00)
[2018-05-21] MEDS ORDERED: PIPERACILLIN/TAZOB 2.25 GM 2.25 GM in DEXTROSE 5%-WATER - 50 ML IVPB SCH (03:00)
[2018-05-21 03:50] VITALS: BMI 28.0
[2018-05-21] MEDS: FUROSEMIDE 40 MG/4 ML INJECTABLE VIAL IVPUSH SCH ×2 (06:08→13:23)
[2018-05-21] MEDS: INSULIN (LEVEMIR) 100 UNITS/ML UNITS SQ SCH (06:14)
[2018-05-21] MEDS: ALBUTEROL SO4 2.5/IPRATROPIUM 0.5 INH SOL 3 ML VIAL.NEB. NEB SCH ×3 (08:30→20:32)
[2018-05-21] MEDS ORDERED: PT OWN MED DRAWER 7, Y5N ONE (09:13)
[2018-05-21] MEDS: METOPROLOL TARTRATE 25 MG TABLET (FP) PO SCH ×2 (09:25→21:29)
[2018-05-21] MEDS: POTASSIUM CHLORIDE TABS 20 MEQ TABLET.ER (FP) PO SCH (09:26)
[2018-05-21] MEDS: PANTOPRAZOLE 40 MG TABLET (FP) PO SCH (09:26)
[2018-05-21] MEDS: MAGNESIUM OXIDE 400 MG TABLET (FP) PO SCH ×2 (09:26→21:29)
[2018-05-21] MEDS: MULTIVITAMINS (DAILY MVI) TABLET (FP) PO SCH (09:26)
[2018-05-21] MEDS: DOCUSATE SODIUM 100 MG CAPSULE (FP) PO SCH ×2 (09:26→21:29)
[2018-05-21] MEDS: APIXABAN 5 MG TABLET PO SCH ×2 (09:26→21:29)
[2018-05-21] MEDS: ASPIRIN COATED 81 MG TABLET.EC PO SCH (09:26)
--- NOTE | 2018-05-21 10:32 | PN ---
Progress Note (short form) - Note Progress Note: pt seen/ examined chart reviewed awake and comfortable complaints offered today Lying in bed No distress Vital Signs Temp 98 F 05/21/18 09:00 Pulse 72 05/21/18 09:00 Resp 20 05/21/18 09:00 BP 101/70 05/21/18 09:00 Pulse Ox 98 05/21/18 06:54 Intake & Output 05/20/18 05/20/18 05/21/18 11:59 23:59 11:59 Intake Total 580 60 Output Total 1700 220 Balance -1120 -160 Weight 189 lb 9.6 oz Intake: IV 60 RH 60 IVPB 100 Oral 480 Output: Urine 1700 220 Tanner 1700 220 Other: Voiding Method Diaper Indwelling Catheter Height 5 ft 9 in Body Mass Index (BMI) 28.0 Weight Measurement Method Patient Lift Scale Active Medications Albuterol Sulfate (Ventolin 0.083% Nebulizer Soln -) 1 amp NEB Q6H PRN PRN Reason: SHORT OF BREATH/WHEEZING Albuterol/Ipratropium (Duoneb -) 1 amp NEB RTID [facility] Last Admin: 05/21/18 08:30 Dose: 1 amp Apixaban (Eliquis -) 5 mg PO BID [facility] Last Admin: 05/21/18 09:26 Dose: 5 mg Aspirin (Ecotrin -) 81 mg PO DAILY [facility] Last Admin: 05/21/18 09:26 Dose: 81 mg Atorvastatin Calcium (Lipitor -) 80 mg PO HS [facility] Last Admin: 05/20/18 23:49 Dose: 80 mg Budesonide (Pulmicort 0.5 Mg Nebulizer -) 1 amp NEB RBID [facility] Last Admin: 05/20/18 12:50 Dose: Not Given Docusate Sodium (Colace -) 100 mg PO BID [facility] Last Admin: 05/21/18 09:26 Dose: 100 mg Furosemide (Lasix Injection -) 40 mg IVPUSH BID@0600,1400 [facility] Last Admin: 05/21/18 06:08 Dose: 40 mg Piperacillin Sod/Tazobactam (Sod 3.375 gm/ Dextrose) 50 mls @ 100 mls/hr IVPB Q8H-IV [facility]; Protocol Last Admin: 05/21/18 09:25 Dose: 100 mls/hr Insulin Detemir (Levemir Vial) 25 units SQ DAILY@0700 [facility] Last Admin: 05/21/18 06:14 Dose: Not Given Magnesium Oxide (Mag-Ox -) 400 mg PO BID [facility] Last Admin: 05/21/18 09:26 Dose: 400 mg Metoprolol Tartrate (Lopressor -) 25 mg PO BID [facility] Last Admin: 05/21/18 09:25 Dose: 25 mg Multivitamins/Minerals/Vitamin C (Tab-A-Vit -) 1 tab PO DAILY [facility] Last Admin: 05/21/18 09:26 Dose: 1 tab Nystatin (Mycostatin Cream -) 1 applic TP BID [facility] Last Admin: 05/20/18 23:49 Dose: 1 applic Pantoprazole Sodium (Protonix -) 40 mg PO DAILY [facility] Last Admin: 05/21/18 09:26 Dose: 40 mg Potassium Chloride (K-Dur -) 20 meq PO DAILY [facility] Last Admin: 05/21/18 09:26 Dose: 20 meq CBC, BMP 05/20/18 05:30 05/20/18 05:30 Chest x-ray---improved physical exam S1 S2 Irregular Lungs crackles B/L JVD+ Abd- soft, NT, obese no edema neuro--Awake PLAN CHF decompensation UTI HYPOXIC HYPERCAPNEIC RESP FAILURE -BIPAP - IV lasix--- dose was increased yesterday - IV antibiotics -- cultures pending -- continue with meds -- pt clinically improved with BIPAP and lasix -- DNR/DNI --follow-up electrolytes We will follow
[2018-05-21 11:19] LABS: EOS % 2.8 % (0-4.5); HEMATOCRIT 31.2 % (35.4-49); HEMOGLOBIN 10.2 GM/dL (11.7-16.9); LYMPH % 17.7 % (8-40); MCH 30.3 pg (25.7-33.7); MCHC 32.7 g/dl (32.0-35.9); MEAN CELL VOLUME 92.5 fl (80-96); MEAN PLT VOLUME 8.8 fl (7.5-11.1); MONO % 7.8 % (3.8-10.2); NEUT % 70.7 % (42.8-82.8); PLATELET COUNT 205 K/MM3 (134-434); RBC 3.37 M/mm3 (4.00-5.60); RDW 17.6 % (11.9-15.9); WHITE BLOOD COUNT 7.9 K/mm3 (4.0-10.0)
--- NOTE | 2018-05-21 11:25 | PN ---
Progress Note, Physician History of Present Illness: PULMONARY ALERT,FEELING BETTER,LESS DYSPNEIC - Current Medication List Current Medications: Active Medications Albuterol Sulfate (Ventolin 0.083% Nebulizer Soln -) 1 amp NEB Q6H PRN PRN Reason: SHORT OF BREATH/WHEEZING Albuterol/Ipratropium (Duoneb -) 1 amp NEB RTID [facility] Last Admin: 05/21/18 08:30 Dose: 1 amp Apixaban (Eliquis -) 5 mg PO BID [facility] Last Admin: 05/21/18 09:26 Dose: 5 mg Aspirin (Ecotrin -) 81 mg PO DAILY [facility] Last Admin: 05/21/18 09:26 Dose: 81 mg Atorvastatin Calcium (Lipitor -) 80 mg PO HS [facility] Last Admin: 05/20/18 23:49 Dose: 80 mg Budesonide (Pulmicort 0.5 Mg Nebulizer -) 1 amp NEB RBID [facility] Last Admin: 05/20/18 12:50 Dose: Not Given Docusate Sodium (Colace -) 100 mg PO BID [facility] Last Admin: 05/21/18 09:26 Dose: 100 mg Furosemide (Lasix Injection -) 40 mg IVPUSH BID@0600,1400 [facility] Last Admin: 05/21/18 06:08 Dose: 40 mg Piperacillin Sod/Tazobactam (Sod 3.375 gm/ Dextrose) 50 mls @ 100 mls/hr IVPB Q8H-IV [facility]; Protocol Last Admin: 05/21/18 09:25 Dose: 100 mls/hr Insulin Detemir (Levemir Vial) 25 units SQ DAILY@0700 [facility] Last Admin: 05/21/18 06:14 Dose: Not Given Magnesium Oxide (Mag-Ox -) 400 mg PO BID [facility] Last Admin: 05/21/18 09:26 Dose: 400 mg Metoprolol Tartrate (Lopressor -) 25 mg PO BID [facility] Last Admin: 05/21/18 09:25 Dose: 25 mg Multivitamins/Minerals/Vitamin C (Tab-A-Vit -) 1 tab PO DAILY [facility] Last Admin: 05/21/18 09:26 Dose: 1 tab Nystatin (Mycostatin Cream -) 1 applic TP BID [facility] Last Admin: 05/20/18 23:49 Dose: 1 applic Pantoprazole Sodium (Protonix -) 40 mg PO DAILY [facility] Last Admin: 05/21/18 09:26 Dose: 40 mg Potassium Chloride (K-Dur -) 20 meq PO DAILY [facility] Last Admin: 05/21/18 09:26 Dose: 20 meq - Objective Vital Signs: Vital Signs Temperature 98 F 05/21/18 09:00 Pulse Rate 72 05/21/18 09:00 Respiratory Rate 20 05/21/18 09:00 Blood Pressure 101/70 05/21/18 09:00 O2 Sat by Pulse Oximetry (%) 98 05/21/18 09:00 Constitutional: Yes: Well Nourished, Calm Eyes: Yes: WNL HENT: Yes: WNL Neck: Yes: WNL Cardiovascular: Yes: Pulse Irregular, S1, S2 Respiratory: Yes: Rales (BIBASILAR RALES) Gastrointestinal: Yes: Normal Bowel Sounds, Soft Extremities: Yes: WNL Edema: No Labs: CBC, BMP 05/21/18 10:55 INR, PTT INR 1.48 (0.83-1.09) H 05/19/18 17:30 - ....Imaging Chest X-ray: Report Reviewed, Image Reviewed Problem List - Problems (1) Afib Code(s): I48.91 - UNSPECIFIED ATRIAL FIBRILLATION Assessment/Plan Problem List - Problems (1) Acute hypercapnic respiratory failure Code(s): J96.02 - ACUTE RESPIRATORY FAILURE WITH HYPERCAPNIA (2) CHF (congestive heart failure) Code(s): I50.9 - HEART FAILURE, UNSPECIFIED (3) UTI (urinary tract infection) Code(s): N39.0 - URINARY TRACT INFECTION, SITE NOT SPECIFIED Assessment/Plan Decompensated CHF Acute Hypercapneic Respiratory Failure UTI COPD Atrial Fibrillation HTN - IV lasix - monitor urine output, creatinine - daily weights - inhaled bronchodilators - antibiotics for UTI - rate control - eliquis - O2 to keep Spo2 >90% DR SAUCEDA
[2018-05-21 11:43] LABS: ANION GAP 1 MMOL/L (8-16); BLOOD UREA NITROGEN 20 mg/dL (7-18); CALCIUM 8.3 mg/dL (8.5-10.1); CHLORIDE 99 mmol/L (98-107); CO2 40 mmol/L (21-32); CREATININE 0.8 mg/dL (0.55-1.3); GLUCOSE,RANDOM 184 mg/dL (74-106); POTASSIUM 3.6 mmol/L (3.5-5.1); SODIUM 139 mmol/L (136-145)
[2018-05-21] MEDS: NYSTATIN 100,000 UNIT/GM TOPICAL CREAM 15 GM TUBE TP SCH ×2 (12:00→22:00)
--- NOTE | 2018-05-21 12:18 | PN ---
Progress Note (short form) - Note Progress Note: s: no cp sob palps dizzy o: Vital Signs Period Temp Pulse Resp BP Sys/Paz Pulse Ox Last 24 Hr 96.3 F-98.8 F 66-93 20-20 92-101/59-70 97-98 nad no jvd irreg s1s2 scattered rhonchi, nl eff awake alert confused abd nt nd pos bs no jaundice diaphoresis no le e/c/c CBC, BMP 05/21/18 10:55 05/21/18 10:55 Current Medications Generic Name Dose Route Start Last Admin Trade Name Freq PRN Reason Stop Dose Admin Albuterol Sulfate 1 amp 05/20/18 01:22 Ventolin 0.083% Nebulizer Soln - NEB Q6H PRN SHORT OF BREATH/WHEEZING Albuterol/Ipratropium 1 amp 05/20/18 20:00 05/21/18 08:30 Duoneb - NEB 1 amp RTID [facility] Administration Apixaban 5 mg 05/19/18 22:00 05/21/18 09:26 Eliquis - PO 5 mg BID [facility] Administration Aspirin 81 mg 05/20/18 10:00 05/21/18 09:26 Ecotrin - PO 81 mg DAILY [facility] Administration Atorvastatin Calcium 80 mg 05/19/18 22:00 05/20/18 23:49 Lipitor - PO 80 mg HS [facility] Administration Budesonide 1 amp 05/20/18 08:00 05/20/18 12:50 Pulmicort 0.5 Mg Nebulizer - NEB Not Given RBID [facility] Docusate Sodium 100 mg 05/19/18 22:00 05/21/18 09:26 Colace - PO 100 mg BID [facility] Administration Furosemide 40 mg 05/20/18 06:00 05/21/18 06:08 Lasix Injection - IVPUSH 40 mg BID@0600,1400 [facility] Administration Piperacillin Sod/Tazobactam 50 mls @ 100 mls/hr 05/20/18 18:30 05/21/18 09:25 Sod 3.375 gm/ Dextrose IVPB 100 mls/hr Q8H-IV [facility] Administration Protocol Insulin Detemir 25 units 05/20/18 07:00 05/21/18 06:14 Levemir Vial SQ Not Given DAILY@0700 [facility] Magnesium Oxide 400 mg 05/19/18 22:00 05/21/18 09:26 Mag-Ox - PO 400 mg BID [facility] Administration Metoprolol Tartrate 25 mg 05/19/18 22:00 05/21/18 09:25 Lopressor - PO 25 mg BID [facility] Administration Multivitamins/Minerals/Vitamin C 1 tab 05/20/18 10:00 05/21/18 09:26 Tab-A-Vit - PO 1 tab DAILY [facility] Administration Nystatin 1 applic 05/19/18 22:00 05/20/18 23:49 Mycostatin Cream - TP 1 applic BID [facility] Administration Pantoprazole Sodium 40 mg 05/20/18 10:00 05/21/18 09:26 Protonix - PO 40 mg DAILY [facility] Administration Potassium Chloride 20 meq 05/20/18 10:00 05/21/18 09:26 K-Dur - PO 20 meq DAILY [facility] Administration echo 05/2018: lvh, nl lvef, nl rv, lae, mild ar/tr/mr, mod as cxr: chf ecg: afib, rate controlled, irbbb tele: afib, rate controlled a/p: 83 m hx htn, hld, afib, dchf, copd, [place]. sob, acute diastolic chf: -mild vol overload, cont with iv lasix. check daily wt, chem7 -no signs acs htn: -cont bb afib: -cont bb for rate control -cont eliquis hld: -cont statin mod as: -outpt monitoring
--- NOTE | 2018-05-21 14:59 | PN ---
Progress Note, Physician History of Present Illness: stable better no complaints - Current Medication List Current Medications: Active Medications Albuterol Sulfate (Ventolin 0.083% Nebulizer Soln -) 1 amp NEB Q6H PRN PRN Reason: SHORT OF BREATH/WHEEZING Albuterol/Ipratropium (Duoneb -) 1 amp NEB RTID [facility] Last Admin: 05/21/18 14:41 Dose: 1 amp Apixaban (Eliquis -) 5 mg PO BID [facility] Last Admin: 05/21/18 09:26 Dose: 5 mg Aspirin (Ecotrin -) 81 mg PO DAILY [facility] Last Admin: 05/21/18 09:26 Dose: 81 mg Atorvastatin Calcium (Lipitor -) 80 mg PO HS [facility] Last Admin: 05/20/18 23:49 Dose: 80 mg Budesonide (Pulmicort 0.5 Mg Nebulizer -) 1 amp NEB RBID [facility] Last Admin: 05/20/18 12:50 Dose: Not Given Docusate Sodium (Colace -) 100 mg PO BID [facility] Last Admin: 05/21/18 09:26 Dose: 100 mg Furosemide (Lasix Injection -) 40 mg IVPUSH BID@0600,1400 [facility] Last Admin: 05/21/18 13:23 Dose: 40 mg Piperacillin Sod/Tazobactam (Sod 3.375 gm/ Dextrose) 50 mls @ 100 mls/hr IVPB Q8H-IV [facility]; Protocol Last Admin: 05/21/18 09:25 Dose: 100 mls/hr Insulin Detemir (Levemir Vial) 25 units SQ DAILY@0700 [facility] Last Admin: 05/21/18 06:14 Dose: Not Given Magnesium Oxide (Mag-Ox -) 400 mg PO BID [facility] Last Admin: 05/21/18 09:26 Dose: 400 mg Metoprolol Tartrate (Lopressor -) 25 mg PO BID [facility] Last Admin: 05/21/18 09:25 Dose: 25 mg Multivitamins/Minerals/Vitamin C (Tab-A-Vit -) 1 tab PO DAILY [facility] Last Admin: 05/21/18 09:26 Dose: 1 tab Nystatin (Mycostatin Cream -) 1 applic TP BID [facility] Last Admin: 05/21/18 12:00 Dose: 1 applic Pantoprazole Sodium (Protonix -) 40 mg PO DAILY [facility] Last Admin: 05/21/18 09:26 Dose: 40 mg Potassium Chloride (K-Dur -) 20 meq PO DAILY [facility] Last Admin: 05/21/18 09:26 Dose: 20 meq - Objective Vital Signs: Vital Signs Temperature 98 F 05/21/18 09:00 Pulse Rate 72 05/21/18 09:00 Respiratory Rate 20 05/21/18 09:00 Blood Pressure 101/70 05/21/18 09:00 O2 Sat by Pulse Oximetry (%) 98 05/21/18 09:00 Constitutional: Yes: No Distress, Calm Cardiovascular: Yes: S1, S2 Respiratory: Yes: Regular, CTA Bilaterally Gastrointestinal: Yes: Normal Bowel Sounds, Soft Musculoskeletal: Yes: WNL Extremities: Yes: WNL Neurological: Yes: Alert, Oriented Psychiatric: Yes: Alert Labs: CBC, BMP 05/21/18 10:55 05/21/18 10:55 INR, PTT INR 1.48 (0.83-1.09) H 05/19/18 17:30 Assessment/Plan Problem List - Problems (1) CHF (congestive heart failure) Code(s): I50.9 - HEART FAILURE, UNSPECIFIED (2) Hypercapnic respiratory failure Code(s): J96.92 - RESPIRATORY FAILURE, UNSPECIFIED WITH HYPERCAPNIA (3) UTI (urinary tract infection) Code(s): N39.0 - URINARY TRACT INFECTION, SITE NOT SPECIFIED confusion plan continue abx cx report noted await for identification of the organism rest as per the team
[2018-05-21] MEDS: ATORVASTATIN CA 80 MG TABLET (FP) PO SCH (21:29)
[2018-05-22] MEDS: PIPERACILLIN/TAZOB 3.375 GM 3.375 GM in DEXTROSE 5%-WATER - 50 ML IVPB SCH ×3 (02:45→17:09)
[2018-05-22] MEDS ORDERED: PIPERACILLIN/TAZOBACTAM 3.375 GM VIAL IVPB ONE ×3 (02:53→17:03)
[2018-05-22] MEDS ORDERED: DEXTROSE 5%-WATER - 50 ML IVPB ONE ×3 (02:53→17:03)
[2018-05-22] MEDS: FUROSEMIDE 40 MG/4 ML INJECTABLE VIAL IVPUSH SCH ×2 (06:01→14:36)
[2018-05-22] MEDS: INSULIN (LEVEMIR) 100 UNITS/ML UNITS SQ SCH (06:35)
[2018-05-22] MEDS: ALBUTEROL SO4 2.5/IPRATROPIUM 0.5 INH SOL 3 ML VIAL.NEB. NEB SCH ×3 (08:00→20:35)
--- NOTE | 2018-05-22 08:35 | PN ---
Progress Note, Physician Chief Complaint: sob History of Present Illness: does not recall being sob on DOA--? poor historian sec to recall he denies any sob or orthopnea at present today no cp no palpit no syncope - Current Medication List Current Medications: Active Medications Albuterol Sulfate (Ventolin 0.083% Nebulizer Soln -) 1 amp NEB Q6H PRN PRN Reason: SHORT OF BREATH/WHEEZING Albuterol/Ipratropium (Duoneb -) 1 amp NEB RTID [facility] Last Admin: 05/21/18 20:32 Dose: 1 amp Apixaban (Eliquis -) 5 mg PO BID [facility] Last Admin: 05/21/18 21:29 Dose: 5 mg Aspirin (Ecotrin -) 81 mg PO DAILY [facility] Last Admin: 05/21/18 09:26 Dose: 81 mg Atorvastatin Calcium (Lipitor -) 80 mg PO HS [facility] Last Admin: 05/21/18 21:29 Dose: 80 mg Budesonide (Pulmicort 0.5 Mg Nebulizer -) 1 amp NEB RBID [facility] Last Admin: 05/20/18 12:50 Dose: Not Given Docusate Sodium (Colace -) 100 mg PO BID [facility] Last Admin: 05/21/18 21:29 Dose: 100 mg Furosemide (Lasix Injection -) 40 mg IVPUSH BID@0600,1400 [facility] Last Admin: 05/22/18 06:01 Dose: 40 mg Piperacillin Sod/Tazobactam (Sod 3.375 gm/ Dextrose) 50 mls @ 100 mls/hr IVPB Q8H-IV [facility]; Protocol Last Admin: 05/22/18 02:45 Dose: 100 mls/hr Insulin Detemir (Levemir Vial) 25 units SQ DAILY@0700 [facility] Last Admin: 05/22/18 06:35 Dose: 25 units Magnesium Oxide (Mag-Ox -) 400 mg PO BID [facility] Last Admin: 05/21/18 21:29 Dose: 400 mg Metoprolol Tartrate (Lopressor -) 25 mg PO BID [facility] Last Admin: 05/21/18 21:29 Dose: 25 mg Multivitamins/Minerals/Vitamin C (Tab-A-Vit -) 1 tab PO DAILY [facility] Last Admin: 05/21/18 09:26 Dose: 1 tab Nystatin (Mycostatin Cream -) 1 applic TP BID [facility] Last Admin: 05/21/18 22:00 Dose: 1 applic Pantoprazole Sodium (Protonix -) 40 mg PO DAILY [facility] Last Admin: 05/21/18 09:26 Dose: 40 mg Potassium Chloride (K-Dur -) 20 meq PO DAILY [facility] Last Admin: 05/21/18 09:26 Dose: 20 meq - Objective Vital Signs: Vital Signs Temperature 97.6 F 05/22/18 05:16 Pulse Rate 84 05/22/18 05:16 Respiratory Rate 18 05/22/18 05:16 Blood Pressure 118/58 L 05/22/18 05:16 O2 Sat by Pulse Oximetry (%) 95 05/21/18 21:00 Constitutional: Yes: Well Nourished, No Distress, Calm Cardiovascular: Yes: Pulse Irregular, S1, S2. No: JVD, Gallop, Murmur Respiratory: Yes: Regular. No: CTA Bilaterally, Accessory Muscle Use, Rales, Wheezes Extremities: No: Cold Edema: No Neurological: Yes: Alert. No: Seizure Psychiatric: No: Agitated Labs: CBC, BMP 05/21/18 10:55 05/21/18 10:55 INR, PTT INR 1.48 (0.83-1.09) H 05/19/18 17:30 Assessment/Plan echo 05/2018: lvh, nl lvef, nl rv, lae, mild ar/tr/mr, mod as cxr: chf ecg: afib, rate controlled, irbbb tele: afib, rate controlled a/p: 83 m hx htn, hld, afib, dchf, copd, sent from [place] for sob. sob, acute diastolic chf: -cxr with congestive changes, BNP 1400 (no priors) -no signs ACS -receiving lasix 40 iv bid. -05/22: wt down. renal fxn stable, bicarb up. appears euvolemic. denies sob. same lasix today--rpt CXR and BMP in am, suspect will be ready to transition to PO lasix tomorrow htn: -soft at times -cont bb, observe trend afib: -rates controlled--cont bb as doing -cont eliquis hld: -cont statin mod as: -grad 56/33, MACY 1.1--all concordant in moderate range -outpt monitoring hypothyroid: -TSH 20 -per pmd D/C TELEMETRY
[2018-05-22] MEDS: METOPROLOL TARTRATE 25 MG TABLET (FP) PO SCH ×2 (09:50→21:31)
[2018-05-22] MEDS: ASPIRIN COATED 81 MG TABLET.EC PO SCH (09:50)
[2018-05-22] MEDS: APIXABAN 5 MG TABLET PO SCH ×2 (09:50→21:31)
[2018-05-22] MEDS: PANTOPRAZOLE 40 MG TABLET (FP) PO SCH (09:50)
[2018-05-22] MEDS: DOCUSATE SODIUM 100 MG CAPSULE (FP) PO SCH ×2 (09:50→21:32)
[2018-05-22] MEDS: MULTIVITAMINS (DAILY MVI) TABLET (FP) PO SCH (09:50)
[2018-05-22] MEDS: POTASSIUM CHLORIDE TABS 20 MEQ TABLET.ER (FP) PO SCH (09:50)
[2018-05-22] MEDS: MAGNESIUM OXIDE 400 MG TABLET (FP) PO SCH ×2 (09:50→21:31)
[2018-05-22] MEDS: NYSTATIN 100,000 UNIT/GM TOPICAL CREAM 15 GM TUBE TP SCH ×2 (09:51→21:33)
--- NOTE | 2018-05-22 11:22 | PN ---
Progress Note (short form) - Note Progress Note: Feels fine Pleasant No chest pain or SOB no dysuria Vital Signs - 24 hr 05/21/18 05/21/18 05/21/18 14:15 15:00 18:00 Temperature 98.7 F 98.8 F Pulse Rate 80 90 Respiratory 18 18 Rate Blood Pressure 108/77 100/66 O2 Sat by Pulse 96 Oximetry (%) 05/21/18 05/21/18 05/21/18 20:43 21:00 21:28 Temperature 97.9 F Pulse Rate 94 H 86 Respiratory 18 18 18 Rate Blood Pressure 92/49 L 112/57 L O2 Sat by Pulse 95 95 Oximetry (%) 05/22/18 05/22/18 05/22/18 02:00 05:16 08:51 Temperature 97.8 F 97.6 F 98.3 F Pulse Rate 78 84 83 Respiratory 18 18 18 Rate Blood Pressure 91/56 L 118/58 L 111/69 O2 Sat by Pulse Oximetry (%) 05/22/18 08:52 Temperature Pulse Rate Respiratory 18 Rate Blood Pressure O2 Sat by Pulse 96 Oximetry (%) Current Medications Generic Name Dose Route Start Last Admin Trade Name Freq PRN Reason Stop Dose Admin Albuterol Sulfate 1 amp 05/20/18 01:22 Ventolin 0.083% Nebulizer Soln - NEB Q6H PRN SHORT OF BREATH/WHEEZING Albuterol/Ipratropium 1 amp 05/20/18 20:00 05/21/18 20:32 Duoneb - NEB 1 amp RTID [facility] Administration Apixaban 5 mg 05/19/18 22:00 05/22/18 09:50 Eliquis - PO 5 mg BID [facility] Administration Aspirin 81 mg 05/20/18 10:00 05/22/18 09:50 Ecotrin - PO 81 mg DAILY [facility] Administration Atorvastatin Calcium 80 mg 05/19/18 22:00 05/21/18 21:29 Lipitor - PO 80 mg HS [facility] Administration Budesonide 1 amp 05/20/18 08:00 05/20/18 12:50 Pulmicort 0.5 Mg Nebulizer - NEB Not Given RBID [facility] Docusate Sodium 100 mg 05/19/18 22:00 05/22/18 09:50 Colace - PO 100 mg BID [facility] Administration Furosemide 40 mg 05/20/18 06:00 05/22/18 06:01 Lasix Injection - IVPUSH 40 mg BID@0600,1400 [facility] Administration Piperacillin Sod/Tazobactam 50 mls @ 100 mls/hr 05/20/18 18:30 05/22/18 09:48 Sod 3.375 gm/ Dextrose IVPB 100 mls/hr Q8H-IV [facility] Administration Protocol Insulin Detemir 25 units 05/20/18 07:00 05/22/18 06:35 Levemir Vial SQ 25 units DAILY@0700 [facility] Administration Magnesium Oxide 400 mg 05/19/18 22:00 05/22/18 09:50 Mag-Ox - PO 400 mg BID [facility] Administration Metoprolol Tartrate 25 mg 05/19/18 22:00 05/22/18 09:50 Lopressor - PO 25 mg BID [facility] Administration Multivitamins/Minerals/Vitamin C 1 tab 05/20/18 10:00 05/22/18 09:50 Tab-A-Vit - PO 1 tab DAILY [facility] Administration Nystatin 1 applic 05/19/18 22:00 05/22/18 09:51 Mycostatin Cream - TP 1 applic BID [facility] Administration Pantoprazole Sodium 40 mg 05/20/18 10:00 05/22/18 09:50 Protonix - PO 40 mg DAILY [facility] Administration Potassium Chloride 20 meq 05/20/18 10:00 05/22/18 09:50 K-Dur - PO 20 meq DAILY [facility] Administration Laboratory Results - last 24 hr 05/21/18 05/22/18 10:55 06:33 Sodium 139 Potassium 3.6 Chloride 99 Carbon Dioxide 40 H Anion Gap 1 L BUN 20 H Creatinine 0.8 Creat Clearance w eGFR 91.87 POC Glucometer 195 Random Glucose 184 H Calcium 8.3 L S1 S2 Irregular Lungs crackles B/L JVD+ Abd- soft, NT, obese, peg tube+ no edema PLAN CHF decompensation UTI HYPOXIC HYPERCAPNEIC RESP FAILURE -BIPAP - IV lasix increased - IV antibiotics -- cultures noted- Ecoli in urine -- continue with meds -- pt clinically improved with BIPAP and lasix -- DNR/DNI -- has a feeding tube paced a couple of weeks ago-- now he is eating well by mouth , has good po intake Problem List - Problems (1) CHF (congestive heart failure) Code(s): I50.9 - HEART FAILURE, UNSPECIFIED Qualifiers: Heart failure type: unspecified Heart failure chronicity: acute on chronic Qualified Code(s): I50.9 - Heart failure, unspecified (2) Hypercapnic respiratory failure Code(s): J96.92 - RESPIRATORY FAILURE, UNSPECIFIED WITH HYPERCAPNIA Qualifiers: Chronicity: acute Qualified Code(s): J96.02 - Acute respiratory failure with hypercapnia (3) UTI (urinary tract infection) Code(s): N39.0 - URINARY TRACT INFECTION, SITE NOT SPECIFIED Qualifiers: Urinary tract infection type: site unspecified Hematuria presence: without hematuria Qualified Code(s): N39.0 - Urinary tract infection, site not specified
--- NOTE | 2018-05-22 14:47 | PN ---
Progress Note (short form) - Note Progress Note: PULMONARY States breathing is improving. No chest pain. Minimal cough. Vital Signs Period Temp Pulse Resp BP Sys/Paz Pulse Ox Last 24 Hr 97.6 F-98.8 F 78-94 18-18 91-118/49-77 95-96 Gen: NAD at rest Heart: irregular Lung: decreased breath sounds at the bases Abd: soft, nontender Ext: less edema CBC, BMP 05/21/18 10:55 05/21/18 10:55 Active Medications Albuterol Sulfate (Ventolin 0.083% Nebulizer Soln -) 1 amp NEB Q6H PRN PRN Reason: SHORT OF BREATH/WHEEZING Albuterol/Ipratropium (Duoneb -) 1 amp NEB RTID REPLACED BY [facility] Last Admin: 05/22/18 08:00 Dose: 1 amp Apixaban (Eliquis -) 5 mg PO BID REPLACED BY [facility] Last Admin: 05/22/18 09:50 Dose: 5 mg Aspirin (Ecotrin -) 81 mg PO DAILY REPLACED BY [facility] Last Admin: 05/22/18 09:50 Dose: 81 mg Atorvastatin Calcium (Lipitor -) 80 mg PO HS REPLACED BY [facility] Last Admin: 05/21/18 21:29 Dose: 80 mg Budesonide (Pulmicort 0.5 Mg Nebulizer -) 1 amp NEB RBID REPLACED BY [facility] Last Admin: 05/20/18 12:50 Dose: Not Given Docusate Sodium (Colace -) 100 mg PO BID REPLACED BY [facility] Last Admin: 05/22/18 09:50 Dose: 100 mg Furosemide (Lasix Injection -) 40 mg IVPUSH BID@0600,1400 REPLACED BY [facility] Last Admin: 05/22/18 14:36 Dose: 40 mg Piperacillin Sod/Tazobactam (Sod 3.375 gm/ Dextrose) 50 mls @ 100 mls/hr IVPB Q8H-IV [facility]; Protocol Last Admin: 05/22/18 09:48 Dose: 100 mls/hr Insulin Detemir (Levemir Vial) 25 units SQ DAILY@0700 REPLACED BY [facility] Last Admin: 05/22/18 06:35 Dose: 25 units Levothyroxine Sodium (Synthroid -) 25 mcg PO DAILY@0700 REPLACED BY [facility] Magnesium Oxide (Mag-Ox -) 400 mg PO BID REPLACED BY [facility] Last Admin: 05/22/18 09:50 Dose: 400 mg Metoprolol Tartrate (Lopressor -) 25 mg PO BID REPLACED BY [facility] Last Admin: 05/22/18 09:50 Dose: 25 mg Multivitamins/Minerals/Vitamin C (Tab-A-Vit -) 1 tab PO DAILY REPLACED BY [facility] Last Admin: 05/22/18 09:50 Dose: 1 tab Nystatin (Mycostatin Cream -) 1 applic TP BID REPLACED BY [facility] Last Admin: 05/22/18 09:51 Dose: 1 applic Pantoprazole Sodium (Protonix -) 40 mg PO DAILY REPLACED BY [facility] Last Admin: 05/22/18 09:50 Dose: 40 mg Potassium Chloride (K-Dur -) 20 meq PO DAILY REPLACED BY [facility] Last Admin: 05/22/18 09:50 Dose: 20 meq A/P Acute on Chronic Diastolic Heart Failure Acute Hypercapneic Respiratory Failure improving UTI COPD Atrial Fibrillation HTN - continue lasix - monitor urine output, creatinine - daily weights - inhaled bronchodilators - antibiotics for UTI - rate control - continue anticoagulation - O2 to keep Spo2 >90% Problem List - Problems (1) Acute hypercapnic respiratory failure Code(s): J96.02 - ACUTE RESPIRATORY FAILURE WITH HYPERCAPNIA (2) CHF (congestive heart failure) Code(s): I50.9 - HEART FAILURE, UNSPECIFIED Qualifiers: Heart failure type: unspecified Heart failure chronicity: acute on chronic Qualified Code(s): I50.9 - Heart failure, unspecified (3) UTI (urinary tract infection) Code(s): N39.0 - URINARY TRACT INFECTION, SITE NOT SPECIFIED Qualifiers: Urinary tract infection type: site unspecified Hematuria presence: without hematuria Qualified Code(s): N39.0 - Urinary tract infection, site not specified
--- NOTE | 2018-05-22 17:58 | PN ---
Progress Note, Physician History of Present Illness: Pt seen and examined, labs/imaging results noted. He states he is feeling well, no c/o shortness of breath at this time. Remains afebrile. No specific complaints. - Current Medication List Current Medications: Active Medications Albuterol Sulfate (Ventolin 0.083% Nebulizer Soln -) 1 amp NEB Q6H PRN PRN Reason: SHORT OF BREATH/WHEEZING Albuterol/Ipratropium (Duoneb -) 1 amp NEB RTID [facility] Last Admin: 05/22/18 13:00 Dose: 1 amp Apixaban (Eliquis -) 5 mg PO BID [facility] Last Admin: 05/22/18 09:50 Dose: 5 mg Aspirin (Ecotrin -) 81 mg PO DAILY [facility] Last Admin: 05/22/18 09:50 Dose: 81 mg Atorvastatin Calcium (Lipitor -) 80 mg PO HS [facility] Last Admin: 05/21/18 21:29 Dose: 80 mg Budesonide (Pulmicort 0.5 Mg Nebulizer -) 1 amp NEB RBID [facility] Last Admin: 05/20/18 12:50 Dose: Not Given Docusate Sodium (Colace -) 100 mg PO BID [facility] Last Admin: 05/22/18 09:50 Dose: 100 mg Furosemide (Lasix Injection -) 40 mg IVPUSH BID@0600,1400 [facility] Last Admin: 05/22/18 14:36 Dose: 40 mg Ceftriaxone Sodium 1 gm/ (Dextrose) 100 mls @ 200 mls/hr IVPB DAILY [facility]; Protocol Insulin Detemir (Levemir Vial) 25 units SQ DAILY@0700 [facility] Last Admin: 05/22/18 06:35 Dose: 25 units Levothyroxine Sodium (Synthroid -) 25 mcg PO DAILY@0700 [facility] Magnesium Oxide (Mag-Ox -) 400 mg PO BID [facility] Last Admin: 05/22/18 09:50 Dose: 400 mg Metoprolol Tartrate (Lopressor -) 25 mg PO BID [facility] Last Admin: 05/22/18 09:50 Dose: 25 mg Multivitamins/Minerals/Vitamin C (Tab-A-Vit -) 1 tab PO DAILY [facility] Last Admin: 05/22/18 09:50 Dose: 1 tab Nystatin (Mycostatin Cream -) 1 applic TP BID [facility] Last Admin: 05/22/18 09:51 Dose: 1 applic Pantoprazole Sodium (Protonix -) 40 mg PO DAILY [facility] Last Admin: 05/22/18 09:50 Dose: 40 mg Potassium Chloride (K-Dur -) 20 meq PO DAILY [facility] Last Admin: 05/22/18 09:50 Dose: 20 meq - Objective Vital Signs: Vital Signs Temperature 98.2 F 05/22/18 14:10 Pulse Rate 87 05/22/18 14:10 Respiratory Rate 18 05/22/18 14:10 Blood Pressure 112/61 05/22/18 14:10 O2 Sat by Pulse Oximetry (%) 96 05/22/18 08:52 Constitutional: Yes: No Distress, Calm Cardiovascular: Yes: Regular Rate and Rhythm Respiratory: Yes: Regular, On Nasal O2 Gastrointestinal: Yes: Normal Bowel Sounds, Soft Genitourinary: Yes: WNL Integumentary: Yes: WNL Neurological: Yes: Alert Labs: CBC, BMP 05/21/18 10:55 05/21/18 10:55 INR, PTT INR 1.48 (0.83-1.09) H 05/19/18 17:30 Microbiology 05/19/18 17:30 Urine - Urine Clean Catch Urine Culture - Final Escherichia Coli 05/19/18 17:30 Blood - Peripheral Venous Blood Culture - Preliminary NO GROWTH OBTAINED AFTER 48 HOURS, INCUBATION TO CONTINUE FOR 3 DAYS. 05/19/18 17:30 Blood - Peripheral Venous Blood Culture - Preliminary NO GROWTH OBTAINED AFTER 48 HOURS, INCUBATION TO CONTINUE FOR 3 DAYS. Problem List - Problems (1) Acute hypercapnic respiratory failure Code(s): J96.02 - ACUTE RESPIRATORY FAILURE WITH HYPERCAPNIA (2) Afib Code(s): I48.91 - UNSPECIFIED ATRIAL FIBRILLATION (3) CHF (congestive heart failure) Code(s): I50.9 - HEART FAILURE, UNSPECIFIED Qualifiers: Heart failure type: unspecified Heart failure chronicity: acute on chronic Qualified Code(s): I50.9 - Heart failure, unspecified (4) Hypercapnic respiratory failure Code(s): J96.92 - RESPIRATORY FAILURE, UNSPECIFIED WITH HYPERCAPNIA Qualifiers: Chronicity: acute Qualified Code(s): J96.02 - Acute respiratory failure with hypercapnia (5) UTI (urinary tract infection) Code(s): N39.0 - URINARY TRACT INFECTION, SITE NOT SPECIFIED Qualifiers: Urinary tract infection type: site unspecified Hematuria presence: without hematuria Qualified Code(s): N39.0 - Urinary tract infection, site not specified Assessment/Plan -- d/c Zosyn, switch to Ceftriaxone pt is afebrile, without respiratory distress
[2018-05-22] MEDS: ATORVASTATIN CA 80 MG TABLET (FP) PO SCH (21:31)
[2018-05-23] MEDS ORDERED: cefTRIAXone SODIUM 1 GM VIAL ONE ×2 (01:10→09:54)
[2018-05-23] MEDS ORDERED: DEXTROSE 5%-WATER - 50 ML IVPB ONE ×2 (01:10→09:54)
[2018-05-23] MEDS: CEFTRIAXONE 1 GM in DEXTROSE 5%-WATER - 50 ML IVPB SCH ×2 (01:16→10:14)
[2018-05-23] MEDS: FUROSEMIDE 40 MG/4 ML INJECTABLE VIAL IVPUSH SCH (06:31)
[2018-05-23] MEDS: INSULIN (LEVEMIR) 100 UNITS/ML UNITS SQ SCH (06:31)
[2018-05-23] MEDS ORDERED: LEVOTHYROXINE NA 25 MCG TABLET (FP) PO SCH (07:00)
[2018-05-23] MEDS: ALBUTEROL SO4 2.5/IPRATROPIUM 0.5 INH SOL 3 ML VIAL.NEB. NEB SCH ×2 (07:54→14:30)
[2018-05-23 08:11] LABS: ANION GAP 2 MMOL/L (8-16); BLOOD UREA NITROGEN 19 mg/dL (7-18); CALCIUM 8.4 mg/dL (8.5-10.1); CHLORIDE 100 mmol/L (98-107); CO2 41 mmol/L (21-32); GLUCOSE,RANDOM 233 mg/dL (74-106); POTASSIUM 3.7 mmol/L (3.5-5.1); SODIUM 143 mmol/L (136-145)
--- NOTE | 2018-05-23 09:14 | PN ---
Progress Note (short form) - Note Progress Note: Feels fine Pleasant No chest pain or SOB no dysuria Vital Signs - 24 hr 05/22/18 05/22/18 05/22/18 18:00 21:00 22:00 Temperature 98.5 F 97.6 F Pulse Rate 104 H 105 H Respiratory 18 18 Rate Blood Pressure 108/55 L 107/67 O2 Sat by Pulse 93 L 95 95 Oximetry (%) 05/23/18 05/23/18 05/23/18 06:00 09:00 10:00 Temperature 97.6 F 97 F L Pulse Rate 74 97 H Respiratory 18 20 20 Rate Blood Pressure 106/57 L 129/75 O2 Sat by Pulse 96 Oximetry (%) 05/23/18 13:48 Temperature 97 F L Pulse Rate 97 H Respiratory 20 Rate Blood Pressure 108/50 L O2 Sat by Pulse Oximetry (%) Current Medications Generic Name Dose Route Start Last Admin Trade Name Freq PRN Reason Stop Dose Admin Albuterol Sulfate 1 amp 05/20/18 01:22 Ventolin 0.083% Nebulizer Soln - NEB Q6H PRN SHORT OF BREATH/WHEEZING Albuterol/Ipratropium 1 amp 05/20/18 20:00 05/23/18 14:30 Duoneb - NEB 1 amp RTID [facility] Administration Amoxicillin/Clavulanate Potassium 1 tab 05/23/18 17:30 Augmentin - 875mg Tablet PO BID@0800,1730 [facility] Apixaban 5 mg 05/19/18 22:00 05/23/18 10:13 Eliquis - PO 5 mg BID [facility] Administration Aspirin 81 mg 05/20/18 10:00 05/23/18 10:14 Ecotrin - PO 81 mg DAILY [facility] Administration Atorvastatin Calcium 80 mg 05/19/18 22:00 05/22/18 21:31 Lipitor - PO 80 mg HS [facility] Administration Budesonide 1 amp 05/20/18 08:00 05/20/18 12:50 Pulmicort 0.5 Mg Nebulizer - NEB Not Given RBID [facility] Docusate Sodium 100 mg 05/19/18 22:00 05/23/18 10:13 Colace - PO 100 mg BID [facility] Administration Furosemide 40 mg 05/23/18 14:00 05/23/18 14:20 Lasix - PO 40 mg BID@0600,1400 [facility] Administration Insulin Detemir 25 units 04/11/19 07:00 05/23/18 06:31 Levemir Vial SQ 25 units DAILY@0700 [facility] Administration Levothyroxine Sodium 25 mcg 05/23/18 07:00 05/23/18 06:31 Synthroid - PO 25 mcg DAILY@0700 [facility] Administration Magnesium Oxide 400 mg 05/19/18 22:00 05/23/18 10:14 Mag-Ox - PO 400 mg BID [facility] Administration Metoprolol Tartrate 25 mg 05/19/18 22:00 05/23/18 10:14 Lopressor - PO 25 mg BID [facility] Administration Multivitamins/Minerals/Vitamin C 1 tab 05/20/18 10:00 05/23/18 10:13 Tab-A-Vit - PO 1 tab DAILY [facility] Administration Nystatin 1 applic 05/19/18 22:00 05/23/18 10:14 Mycostatin Cream - TP 1 applic BID [facility] Administration Pantoprazole Sodium 40 mg 05/20/18 10:00 05/23/18 10:14 Protonix - PO 40 mg DAILY [facility] Administration Polyethylene Glycol 17 gm 05/23/18 10:15 05/23/18 10:16 Miralax (For Daily Use) - PO 17 grams DAILY [facility] Administration Potassium Chloride 20 meq 05/20/18 10:00 05/23/18 10:14 K-Dur - PO 20 meq DAILY [facility] Administration Laboratory Results - last 24 hr 05/23/18 05/23/18 05:40 06:29 Sodium 143 Potassium 3.7 Chloride 100 Carbon Dioxide 41 H Anion Gap 2 L BUN 19 H Creatinine 1.0 Creat Clearance w eGFR 71.02 POC Glucometer 235 Random Glucose 233 H Calcium 8.4 L TSH 72.80 H D S1 S2 Irregular Lungs better heard breath sounds,crackles decreased JVD+ Abd- soft, NT, obese, peg tube+ no edema PLAN CHF decompensation UTI HYPOXIC HYPERCAPNEIC RESP FAILURE -BIPAP - po lasix - IV antibiotics..>consider po -- cultures noted- Ecoli in urine -- continue with meds -- pt clinically improved with BIPAP and lasix -- DNR/DNI -- has a feeding tube paced a couple of weeks ago-- now he is eating well by mouth , has good po intake -- increase synthroid -- dc planning -- nephew wants him in another [place] Problem List - Problems (1) CHF (congestive heart failure) Code(s): I50.9 - HEART FAILURE, UNSPECIFIED Qualifiers: Heart failure type: unspecified Heart failure chronicity: acute on chronic Qualified Code(s): I50.9 - Heart failure, unspecified (2) Hypercapnic respiratory failure Code(s): J96.92 - RESPIRATORY FAILURE, UNSPECIFIED WITH HYPERCAPNIA Qualifiers: Chronicity: acute Qualified Code(s): J96.02 - Acute respiratory failure with hypercapnia (3) UTI (urinary tract infection) Code(s): N39.0 - URINARY TRACT INFECTION, SITE NOT SPECIFIED Qualifiers: Urinary tract infection type: site unspecified Hematuria presence: without hematuria Qualified Code(s): N39.0 - Urinary tract infection, site not specified
[2018-05-23] MEDS: DOCUSATE SODIUM 100 MG CAPSULE (FP) PO SCH ×2 (10:13→21:14)
[2018-05-23] MEDS: MULTIVITAMINS (DAILY MVI) TABLET (FP) PO SCH (10:13)
[2018-05-23] MEDS: APIXABAN 5 MG TABLET PO SCH ×2 (10:13→21:14)
[2018-05-23] MEDS: PANTOPRAZOLE 40 MG TABLET (FP) PO SCH (10:14)
[2018-05-23] MEDS: ASPIRIN COATED 81 MG TABLET.EC PO SCH (10:14)
[2018-05-23] MEDS: MAGNESIUM OXIDE 400 MG TABLET (FP) PO SCH ×2 (10:14→21:15)
[2018-05-23] MEDS: METOPROLOL TARTRATE 25 MG TABLET (FP) PO SCH ×2 (10:14→21:14)
[2018-05-23] MEDS: POTASSIUM CHLORIDE TABS 20 MEQ TABLET.ER (FP) PO SCH (10:14)
[2018-05-23] MEDS: NYSTATIN 100,000 UNIT/GM TOPICAL CREAM 15 GM TUBE TP SCH ×2 (10:14→21:16)
[2018-05-23] MEDS: POLYETHYLENE GLYCOL 3350 119 GM BTL PO SCH (10:16)
--- NOTE | 2018-05-23 10:20 | PN ---
Progress Note, Physician History of Present Illness: No Cv complaints today Tele: Discontinued - Current Medication List Current Medications: Active Medications Albuterol Sulfate (Ventolin 0.083% Nebulizer Soln -) 1 amp NEB Q6H PRN PRN Reason: SHORT OF BREATH/WHEEZING Albuterol/Ipratropium (Duoneb -) 1 amp NEB RTID [facility] Last Admin: 05/23/18 07:54 Dose: 1 amp Apixaban (Eliquis -) 5 mg PO BID [facility] Last Admin: 05/23/18 10:13 Dose: 5 mg Aspirin (Ecotrin -) 81 mg PO DAILY [facility] Last Admin: 05/23/18 10:14 Dose: 81 mg Atorvastatin Calcium (Lipitor -) 80 mg PO HS [facility] Last Admin: 05/22/18 21:31 Dose: 80 mg Budesonide (Pulmicort 0.5 Mg Nebulizer -) 1 amp NEB RBID [facility] Last Admin: 05/20/18 12:50 Dose: Not Given Docusate Sodium (Colace -) 100 mg PO BID [facility] Last Admin: 05/23/18 10:13 Dose: 100 mg Furosemide (Lasix Injection -) 40 mg IVPUSH BID@0600,1400 [facility] Last Admin: 05/23/18 06:31 Dose: 40 mg Ceftriaxone Sodium 1 gm/ (Dextrose) 50 mls @ 100 mls/hr IVPB DAILY [facility]; Protocol Last Admin: 05/23/18 10:14 Dose: 100 mls/hr Insulin Detemir (Levemir Vial) 25 units SQ DAILY@0700 [facility] Last Admin: 05/23/18 06:31 Dose: 25 units Levothyroxine Sodium (Synthroid -) 25 mcg PO DAILY@0700 [facility] Last Admin: 05/23/18 06:31 Dose: 25 mcg Magnesium Oxide (Mag-Ox -) 400 mg PO BID [facility] Last Admin: 05/23/18 10:14 Dose: 400 mg Metoprolol Tartrate (Lopressor -) 25 mg PO BID [facility] Last Admin: 05/23/18 10:14 Dose: 25 mg Multivitamins/Minerals/Vitamin C (Tab-A-Vit -) 1 tab PO DAILY [facility] Last Admin: 05/23/18 10:13 Dose: 1 tab Nystatin (Mycostatin Cream -) 1 applic TP BID [facility] Last Admin: 05/23/18 10:14 Dose: 1 applic Pantoprazole Sodium (Protonix -) 40 mg PO DAILY [facility] Last Admin: 05/23/18 10:14 Dose: 40 mg Polyethylene Glycol (Miralax (For Daily Use) -) 17 gm PO DAILY [facility] Last Admin: 05/23/18 10:16 Dose: 17 grams Potassium Chloride (K-Dur -) 20 meq PO DAILY [facility] Last Admin: 05/23/18 10:14 Dose: 20 meq - Objective Vital Signs: Vital Signs Temperature 97.6 F 05/23/18 06:00 Pulse Rate 74 05/23/18 06:00 Respiratory Rate 18 05/23/18 06:00 Blood Pressure 106/57 L 05/23/18 06:00 O2 Sat by Pulse Oximetry (%) 95 05/22/18 22:00 Constitutional: Yes: No Distress Eyes: Yes: WNL HENT: Yes: WNL Neck: Yes: WNL Cardiovascular: Yes: Pulse Irregular Respiratory: Yes: CTA Bilaterally Gastrointestinal: Yes: WNL Extremities: Yes: WNL Edema: LUE: Trace, RUE: Trace, LLE: Trace, RLE: Trace Labs: CBC, BMP 05/21/18 10:55 05/23/18 05:40 INR, PTT INR 1.48 (0.83-1.09) H 05/19/18 17:30 Assessment/Plan a/p: 83 m hx htn, hld, afib, dchf, copd, sent from [facility] for sob. sob, acute diastolic chf: -cxr with congestive changes, BNP 1400 (no priors) -no signs ACS -receiving lasix 40 iv bid. -05/22: wt down. renal fxn stable, bicarb up. appears euvolemic. denies sob. same lasix today--rpt CXR and BMP in am, suspect will be ready to transition to PO lasix tomorrow -05/23: No weight today but down yesterday, BUN/Creat stable, bicarb up to 41. No CXR this AM. Will transition to PO lasix today htn: -soft at times -cont bb, observe trend afib: -rates controlled--cont bb as doing -cont eliquis hld: -cont statin mod as: -grad 56/33, MACY 1.1--all concordant in moderate range -outpt monitoring hypothyroid: -TSH 20 -per pmd
--- NOTE | 2018-05-23 11:30 | PN ---
Progress Note (short form) - Note Progress Note: PULMONARY Breathing continues to improve. No chest pain. Minimal cough. Vital Signs Period Temp Pulse Resp BP Sys/Paz Pulse Ox Last 24 Hr 97 F-98.5 F 74-105 18-20 106-129/55-75 93-95 Gen: NAD at rest Heart: irregular Lung: decreased breath sounds at the bases Abd: soft, nontender Ext: less edema CBC, BMP 05/21/18 10:55 05/23/18 05:40 Active Medications Albuterol Sulfate (Ventolin 0.083% Nebulizer Soln -) 1 amp NEB Q6H PRN PRN Reason: SHORT OF BREATH/WHEEZING Albuterol/Ipratropium (Duoneb -) 1 amp NEB RTID [facility] Last Admin: 05/23/18 07:54 Dose: 1 amp Apixaban (Eliquis -) 5 mg PO BID [facility] Last Admin: 05/23/18 10:13 Dose: 5 mg Aspirin (Ecotrin -) 81 mg PO DAILY [facility] Last Admin: 05/23/18 10:14 Dose: 81 mg Atorvastatin Calcium (Lipitor -) 80 mg PO HS [facility] Last Admin: 05/22/18 21:31 Dose: 80 mg Budesonide (Pulmicort 0.5 Mg Nebulizer -) 1 amp NEB RBID [facility] Last Admin: 05/20/18 12:50 Dose: Not Given Docusate Sodium (Colace -) 100 mg PO BID [facility] Last Admin: 05/23/18 10:13 Dose: 100 mg Furosemide (Lasix -) 40 mg PO BID@0600,1400 [facility] Ceftriaxone Sodium 1 gm/ (Dextrose) 50 mls @ 100 mls/hr IVPB DAILY [facility]; Protocol Last Admin: 05/23/18 10:14 Dose: 100 mls/hr Insulin Detemir (Levemir Vial) 25 units SQ DAILY@0700 [facility] Last Admin: 05/23/18 06:31 Dose: 25 units Levothyroxine Sodium (Synthroid -) 25 mcg PO DAILY@0700 [facility] Last Admin: 05/23/18 06:31 Dose: 25 mcg Magnesium Oxide (Mag-Ox -) 400 mg PO BID [facility] Last Admin: 05/23/18 10:14 Dose: 400 mg Metoprolol Tartrate (Lopressor -) 25 mg PO BID [facility] Last Admin: 05/23/18 10:14 Dose: 25 mg Multivitamins/Minerals/Vitamin C (Tab-A-Vit -) 1 tab PO DAILY [facility] Last Admin: 05/23/18 10:13 Dose: 1 tab Nystatin (Mycostatin Cream -) 1 applic TP BID [facility] Last Admin: 05/23/18 10:14 Dose: 1 applic Pantoprazole Sodium (Protonix -) 40 mg PO DAILY [facility] Last Admin: 05/23/18 10:14 Dose: 40 mg Polyethylene Glycol (Miralax (For Daily Use) -) 17 gm PO DAILY [facility] Last Admin: 05/23/18 10:16 Dose: 17 grams Potassium Chloride (K-Dur -) 20 meq PO DAILY [facility] Last Admin: 05/23/18 10:14 Dose: 20 meq A/P Acute on Chronic Diastolic Heart Failure Acute Hypercapneic Respiratory Failure improving UTI COPD Atrial Fibrillation HTN - continue lasix - monitor urine output, creatinine - daily weights - inhaled bronchodilators - complete antibiotics for UTI - rate control - continue anticoagulation - O2 to keep Spo2 >90% Problem List - Problems (1) Acute hypercapnic respiratory failure Code(s): J96.02 - ACUTE RESPIRATORY FAILURE WITH HYPERCAPNIA (2) CHF (congestive heart failure) Code(s): I50.9 - HEART FAILURE, UNSPECIFIED Qualifiers: Heart failure type: unspecified Heart failure chronicity: acute on chronic Qualified Code(s): I50.9 - Heart failure, unspecified (3) UTI (urinary tract infection) Code(s): N39.0 - URINARY TRACT INFECTION, SITE NOT SPECIFIED Qualifiers: Urinary tract infection type: site unspecified Hematuria presence: without hematuria Qualified Code(s): N39.0 - Urinary tract infection, site not specified
--- NOTE | 2018-05-23 13:53 | PN ---
Progress Note, Physician History of Present Illness: Pt is alert, without complaints. No respiratory distress. Remains afebrile. - Current Medication List Current Medications: Active Medications Albuterol Sulfate (Ventolin 0.083% Nebulizer Soln -) 1 amp NEB Q6H PRN PRN Reason: SHORT OF BREATH/WHEEZING Albuterol/Ipratropium (Duoneb -) 1 amp NEB RTID [facility] Last Admin: 05/23/18 07:54 Dose: 1 amp Apixaban (Eliquis -) 5 mg PO BID [facility] Last Admin: 05/23/18 10:13 Dose: 5 mg Aspirin (Ecotrin -) 81 mg PO DAILY [facility] Last Admin: 05/23/18 10:14 Dose: 81 mg Atorvastatin Calcium (Lipitor -) 80 mg PO HS [facility] Last Admin: 05/22/18 21:31 Dose: 80 mg Budesonide (Pulmicort 0.5 Mg Nebulizer -) 1 amp NEB RBID [facility] Last Admin: 05/20/18 12:50 Dose: Not Given Docusate Sodium (Colace -) 100 mg PO BID [facility] Last Admin: 05/23/18 10:13 Dose: 100 mg Furosemide (Lasix -) 40 mg PO BID@0600,1400 [facility] Ceftriaxone Sodium 1 gm/ (Dextrose) 50 mls @ 100 mls/hr IVPB DAILY [facility]; Protocol Last Admin: 05/23/18 10:14 Dose: 100 mls/hr Insulin Detemir (Levemir Vial) 25 units SQ DAILY@0700 [facility] Last Admin: 05/23/18 06:31 Dose: 25 units Levothyroxine Sodium (Synthroid -) 25 mcg PO DAILY@0700 [facility] Last Admin: 05/23/18 06:31 Dose: 25 mcg Magnesium Oxide (Mag-Ox -) 400 mg PO BID [facility] Last Admin: 05/23/18 10:14 Dose: 400 mg Metoprolol Tartrate (Lopressor -) 25 mg PO BID [facility] Last Admin: 05/23/18 10:14 Dose: 25 mg Multivitamins/Minerals/Vitamin C (Tab-A-Vit -) 1 tab PO DAILY [facility] Last Admin: 05/23/18 10:13 Dose: 1 tab Nystatin (Mycostatin Cream -) 1 applic TP BID [facility] Last Admin: 05/23/18 10:14 Dose: 1 applic Pantoprazole Sodium (Protonix -) 40 mg PO DAILY [facility] Last Admin: 05/23/18 10:14 Dose: 40 mg Polyethylene Glycol (Miralax (For Daily Use) -) 17 gm PO DAILY [facility] Last Admin: 05/23/18 10:16 Dose: 17 grams Potassium Chloride (K-Dur -) 20 meq PO DAILY [facility] Last Admin: 05/23/18 10:14 Dose: 20 meq - Objective Vital Signs: Vital Signs Temperature 97 F L 05/23/18 10:00 Pulse Rate 97 H 05/23/18 10:00 Respiratory Rate 20 05/23/18 10:00 Blood Pressure 129/75 05/23/18 10:00 O2 Sat by Pulse Oximetry (%) 95 05/22/18 22:00 Constitutional: Yes: No Distress, Calm Cardiovascular: Yes: Pulse Irregular Respiratory: Yes: Other (decreased breath sounds in bases) Gastrointestinal: Yes: Normal Bowel Sounds, Soft Genitourinary: Yes: Tanner Present Integumentary: Yes: WNL Neurological: Yes: Alert Labs: CBC, BMP 05/21/18 10:55 05/23/18 05:40 INR, PTT INR 1.48 (0.83-1.09) H 05/19/18 17:30 Problem List - Problems (1) Acute hypercapnic respiratory failure Code(s): J96.02 - ACUTE RESPIRATORY FAILURE WITH HYPERCAPNIA (2) Afib Code(s): I48.91 - UNSPECIFIED ATRIAL FIBRILLATION (3) CHF (congestive heart failure) Code(s): I50.9 - HEART FAILURE, UNSPECIFIED Qualifiers: Heart failure type: unspecified Heart failure chronicity: acute on chronic Qualified Code(s): I50.9 - Heart failure, unspecified (4) Hypercapnic respiratory failure Code(s): J96.92 - RESPIRATORY FAILURE, UNSPECIFIED WITH HYPERCAPNIA Qualifiers: Chronicity: acute Qualified Code(s): J96.02 - Acute respiratory failure with hypercapnia (5) UTI (urinary tract infection) Code(s): N39.0 - URINARY TRACT INFECTION, SITE NOT SPECIFIED Qualifiers: Urinary tract infection type: site unspecified Hematuria presence: without hematuria Qualified Code(s): N39.0 - Urinary tract infection, site not specified Assessment/Plan UTI - Tanner in place -- will switch to augmentin x 2 days pt is afebrile, without respiratory distress
[2018-05-23] MEDS: FUROSEMIDE 40 MG TABLET (FP) PO SCH (14:20)
[2018-05-23] MEDS: AMOX TR/POT CLAV 875MG/125MG TABLETS (FP) PO SCH (17:11)
[2018-05-23] MEDS: ATORVASTATIN CA 80 MG TABLET (FP) PO SCH (21:14)
[2018-05-24] MEDS: LEVOTHYROXINE NA 75 MCG TABLET (FP) PO SCH (06:22)
[2018-05-24] MEDS: FUROSEMIDE 40 MG TABLET (FP) PO SCH ×2 (06:22→14:00)
[2018-05-24] MEDS: INSULIN (LEVEMIR) 100 UNITS/ML UNITS SQ SCH (06:22)
[2018-05-24] MEDS: ALBUTEROL SO4 2.5/IPRATROPIUM 0.5 INH SOL 3 ML VIAL.NEB. NEB SCH ×3 (07:39→19:44)
[2018-05-24] MEDS ORDERED: PT OWN MED DRAWER 7, Y5N ONE (08:33)
[2018-05-24] MEDS: AMOX TR/POT CLAV 875MG/125MG TABLETS (FP) PO SCH ×2 (09:05→17:42)
[2018-05-24] MEDS: PANTOPRAZOLE 40 MG TABLET (FP) PO SCH (09:06)
[2018-05-24] MEDS: DOCUSATE SODIUM 100 MG CAPSULE (FP) PO SCH ×2 (09:06→21:07)
[2018-05-24] MEDS: MAGNESIUM OXIDE 400 MG TABLET (FP) PO SCH ×2 (09:06→21:07)
[2018-05-24] MEDS: METOPROLOL TARTRATE 25 MG TABLET (FP) PO SCH ×2 (09:06→21:07)
[2018-05-24] MEDS: POTASSIUM CHLORIDE TABS 20 MEQ TABLET.ER (FP) PO SCH (09:06)
[2018-05-24] MEDS: ASPIRIN COATED 81 MG TABLET.EC PO SCH (09:06)
[2018-05-24] MEDS: MULTIVITAMINS (DAILY MVI) TABLET (FP) PO SCH (09:06)
[2018-05-24] MEDS: APIXABAN 5 MG TABLET PO SCH ×2 (09:06→21:07)
[2018-05-24] MEDS: NYSTATIN 100,000 UNIT/GM TOPICAL CREAM 15 GM TUBE TP SCH ×2 (09:07→21:08)
[2018-05-24] MEDS: POLYETHYLENE GLYCOL 3350 119 GM BTL PO SCH (09:07)
--- NOTE | 2018-05-24 10:52 | PN ---
Progress Note, Physician History of Present Illness: PULMONARY ALERT,NO DISTRESS,LESS COUGH - Current Medication List Current Medications: Active Medications Albuterol Sulfate (Ventolin 0.083% Nebulizer Soln -) 1 amp NEB Q6H PRN PRN Reason: SHORT OF BREATH/WHEEZING Albuterol/Ipratropium (Duoneb -) 1 amp NEB RTID [facility] Last Admin: 05/24/18 07:39 Dose: 1 amp Amoxicillin/Clavulanate Potassium (Augmentin - 875mg Tablet) 1 tab PO BID@0800, 1730 [facility] Last Admin: 05/24/18 09:05 Dose: 1 tab Apixaban (Eliquis -) 5 mg PO BID [facility] Last Admin: 05/24/18 09:06 Dose: 5 mg Aspirin (Ecotrin -) 81 mg PO DAILY [facility] Last Admin: 05/24/18 09:06 Dose: 81 mg Atorvastatin Calcium (Lipitor -) 80 mg PO HS [facility] Last Admin: 05/23/18 21:14 Dose: 80 mg Budesonide (Pulmicort 0.5 Mg Nebulizer -) 1 amp NEB RBID [facility] Last Admin: 05/20/18 12:50 Dose: Not Given Docusate Sodium (Colace -) 100 mg PO BID [facility] Last Admin: 05/24/18 09:06 Dose: 100 mg Furosemide (Lasix -) 40 mg PO BID@0600,1400 [facility] Last Admin: 05/24/18 06:22 Dose: 40 mg Insulin Detemir (Levemir Vial) 25 units SQ DAILY@0700 [facility] Last Admin: 05/24/18 06:22 Dose: 25 units Levothyroxine Sodium (Synthroid -) 75 mcg PO DAILY@0700 [facility] Last Admin: 05/24/18 06:22 Dose: 75 mcg Magnesium Oxide (Mag-Ox -) 400 mg PO BID [facility] Last Admin: 05/24/18 09:06 Dose: 400 mg Metoprolol Tartrate (Lopressor -) 25 mg PO BID [facility] Last Admin: 05/24/18 09:06 Dose: 25 mg Multivitamins/Minerals/Vitamin C (Tab-A-Vit -) 1 tab PO DAILY [facility] Last Admin: 05/24/18 09:06 Dose: 1 tab Nystatin (Mycostatin Cream -) 1 applic TP BID [facility] Last Admin: 05/24/18 09:07 Dose: 1 applic Pantoprazole Sodium (Protonix -) 40 mg PO DAILY [facility] Last Admin: 05/24/18 09:06 Dose: 40 mg Polyethylene Glycol (Miralax (For Daily Use) -) 17 gm PO DAILY [facility] Last Admin: 05/24/18 09:07 Dose: 17 grams Potassium Chloride (K-Dur -) 20 meq PO DAILY [facility] Last Admin: 05/24/18 09:06 Dose: 20 meq - Objective Vital Signs: Vital Signs Temperature 98.2 F 05/24/18 08:49 Pulse Rate 90 05/24/18 08:49 Respiratory Rate 20 05/24/18 08:49 Blood Pressure 122/79 05/24/18 08:49 O2 Sat by Pulse Oximetry (%) 96 05/24/18 09:00 Constitutional: Yes: Well Nourished, Calm Eyes: Yes: WNL HENT: Yes: WNL Neck: Yes: WNL Cardiovascular: Yes: Pulse Irregular, S1, S2 Respiratory: Yes: Diminished Gastrointestinal: Yes: Normal Bowel Sounds, Soft Extremities: Yes: WNL Edema: No Labs: Problem List - Problems (1) Afib Code(s): I48.91 - UNSPECIFIED ATRIAL FIBRILLATION Assessment/Plan Problem List - Problems (1) Acute hypercapnic respiratory failure Code(s): J96.02 - ACUTE RESPIRATORY FAILURE WITH HYPERCAPNIA (2) CHF (congestive heart failure) Code(s): I50.9 - HEART FAILURE, UNSPECIFIED (3) UTI (urinary tract infection) Code(s): N39.0 - URINARY TRACT INFECTION, SITE NOT SPECIFIED Assessment/Plan Decompensated CHF improved Acute Hypercapneic Respiratory Failure UTI COPD Atrial Fibrillation HTN - lasix - monitor urine output, creatinine - daily weights - inhaled bronchodilators - antibiotics for UTI - rate control - eliquis - O2 to keep Spo2 >90% DR SAUCEDA
--- NOTE | 2018-05-24 12:11 | PN ---
Progress Note (short form) - Note Progress Note: pt seen/ examined chart reviewed awake. feels better denies cp breathing stable Vital Signs Temp 98.2 F 05/24/18 08:49 Pulse 90 05/24/18 08:49 Resp 20 05/24/18 08:49 BP 122/79 05/24/18 08:49 Pulse Ox 96 05/24/18 09:00 Intake & Output 05/23/18 05/24/18 05/24/18 23:59 11:59 23:59 Intake Total 320 Output Total 1999 300 Balance -1999 20 Weight 176 lb Intake: Oral 320 Output: Urine 1999 300 Tanner 1999 300 Other: Voiding Method Indwelling Catheter Indwelling Catheter Bowel Movement No Weight Measurement Method Standing Scale Active Medications Albuterol Sulfate (Ventolin 0.083% Nebulizer Soln -) 1 amp NEB Q6H PRN PRN Reason: SHORT OF BREATH/WHEEZING Albuterol/Ipratropium (Duoneb -) 1 amp NEB RTID [facility] Last Admin: 05/24/18 07:39 Dose: 1 amp Amoxicillin/Clavulanate Potassium (Augmentin - 875mg Tablet) 1 tab PO BID@0800, 1730 [facility] Last Admin: 05/24/18 09:05 Dose: 1 tab Apixaban (Eliquis -) 5 mg PO BID [facility] Last Admin: 05/24/18 09:06 Dose: 5 mg Aspirin (Ecotrin -) 81 mg PO DAILY [facility] Last Admin: 05/24/18 09:06 Dose: 81 mg Atorvastatin Calcium (Lipitor -) 80 mg PO HS [facility] Last Admin: 05/23/18 21:14 Dose: 80 mg Budesonide (Pulmicort 0.5 Mg Nebulizer -) 1 amp NEB RBID [facility] Last Admin: 05/20/18 12:50 Dose: Not Given Docusate Sodium (Colace -) 100 mg PO BID [facility] Last Admin: 05/24/18 09:06 Dose: 100 mg Furosemide (Lasix -) 40 mg PO BID@0600,1400 [facility] Last Admin: 05/24/18 06:22 Dose: 40 mg Insulin Detemir (Levemir Vial) 25 units SQ DAILY@0700 [facility] Last Admin: 05/24/18 06:22 Dose: 25 units Levothyroxine Sodium (Synthroid -) 75 mcg PO DAILY@0700 [facility] Last Admin: 05/24/18 06:22 Dose: 75 mcg Magnesium Oxide (Mag-Ox -) 400 mg PO BID [facility] Last Admin: 05/24/18 09:06 Dose: 400 mg Metoprolol Tartrate (Lopressor -) 25 mg PO BID [facility] Last Admin: 05/24/18 09:06 Dose: 25 mg Multivitamins/Minerals/Vitamin C (Tab-A-Vit -) 1 tab PO DAILY [facility] Last Admin: 05/24/18 09:06 Dose: 1 tab Nystatin (Mycostatin Cream -) 1 applic TP BID [facility] Last Admin: 05/24/18 09:07 Dose: 1 applic Pantoprazole Sodium (Protonix -) 40 mg PO DAILY [facility] Last Admin: 05/24/18 09:06 Dose: 40 mg Polyethylene Glycol (Miralax (For Daily Use) -) 17 gm PO DAILY [facility] Last Admin: 05/24/18 09:07 Dose: 17 grams Potassium Chloride (K-Dur -) 20 meq PO DAILY [facility] Last Admin: 05/24/18 09:06 Dose: 20 meq CBC, BMP 05/21/18 10:55 05/23/18 05:40 Physical Exam Awake/ comfortable S1 S2 Irregular Lungs better heard breath sounds,crackles at bases JVD+ Abd- soft, NT, obese, peg tube+ no edema PLAN CHF decompensation UTI HYPOXIC HYPERCAPNEIC RESP FAILURE -BIPAP - po lasix - IV antibiotics..> po -- cultures noted- Ecoli in urine -- continue with meds -- pt clinically improved with BIPAP and lasix -- DNR/DNI -- has a feeding tube paced a couple of weeks ago-- now he is eating well by mouth , has good po intake ---- dc planning -- nephew wants him in another NH -- medically stable for d/c when bed available - Discussed with Nursing staff also - Trial of voiding tomorrow - will follow
--- NOTE | 2018-05-24 13:08 | PN ---
Progress Note, Physician History of Present Illness: stable doing better no new issues - Current Medication List Current Medications: Active Medications Albuterol Sulfate (Ventolin 0.083% Nebulizer Soln -) 1 amp NEB Q6H PRN PRN Reason: SHORT OF BREATH/WHEEZING Albuterol/Ipratropium (Duoneb -) 1 amp NEB RTID [facility] Last Admin: 05/24/18 13:07 Dose: 1 amp Amoxicillin/Clavulanate Potassium (Augmentin - 875mg Tablet) 1 tab PO BID@0800, 1730 [facility] Last Admin: 05/24/18 09:05 Dose: 1 tab Apixaban (Eliquis -) 5 mg PO BID [facility] Last Admin: 05/24/18 09:06 Dose: 5 mg Aspirin (Ecotrin -) 81 mg PO DAILY [facility] Last Admin: 05/24/18 09:06 Dose: 81 mg Atorvastatin Calcium (Lipitor -) 80 mg PO HS [facility] Last Admin: 05/23/18 21:14 Dose: 80 mg Budesonide (Pulmicort 0.5 Mg Nebulizer -) 1 amp NEB RBID [facility] Last Admin: 05/20/18 12:50 Dose: Not Given Docusate Sodium (Colace -) 100 mg PO BID [facility] Last Admin: 05/24/18 09:06 Dose: 100 mg Furosemide (Lasix -) 40 mg PO BID@0600,1400 [facility] Last Admin: 05/24/18 06:22 Dose: 40 mg Insulin Detemir (Levemir Vial) 25 units SQ DAILY@0700 [facility] Last Admin: 05/24/18 06:22 Dose: 25 units Levothyroxine Sodium (Synthroid -) 75 mcg PO DAILY@0700 [facility] Last Admin: 05/24/18 06:22 Dose: 75 mcg Magnesium Oxide (Mag-Ox -) 400 mg PO BID [facility] Last Admin: 05/24/18 09:06 Dose: 400 mg Metoprolol Tartrate (Lopressor -) 25 mg PO BID [facility] Last Admin: 05/24/18 09:06 Dose: 25 mg Multivitamins/Minerals/Vitamin C (Tab-A-Vit -) 1 tab PO DAILY [facility] Last Admin: 05/24/18 09:06 Dose: 1 tab Nystatin (Mycostatin Cream -) 1 applic TP BID [facility] Last Admin: 05/24/18 09:07 Dose: 1 applic Pantoprazole Sodium (Protonix -) 40 mg PO DAILY [facility] Last Admin: 05/24/18 09:06 Dose: 40 mg Polyethylene Glycol (Miralax (For Daily Use) -) 17 gm PO DAILY [facility] Last Admin: 05/24/18 09:07 Dose: 17 grams Potassium Chloride (K-Dur -) 20 meq PO DAILY [facility] Last Admin: 05/24/18 09:06 Dose: 20 meq - Objective Vital Signs: Vital Signs Temperature 98.2 F 05/24/18 08:49 Pulse Rate 90 05/24/18 08:49 Respiratory Rate 20 05/24/18 08:49 Blood Pressure 122/79 05/24/18 08:49 O2 Sat by Pulse Oximetry (%) 96 05/24/18 09:00 Constitutional: Yes: No Distress, Calm Cardiovascular: Yes: S1, S2 Respiratory: Yes: Regular Gastrointestinal: Yes: Normal Bowel Sounds, Soft Musculoskeletal: Yes: WNL Extremities: Yes: WNL Neurological: Yes: Alert, Oriented Psychiatric: Yes: Alert, Oriented Labs: CBC, BMP 05/21/18 10:55 05/23/18 05:40 INR, PTT INR 1.48 (0.83-1.09) H 05/19/18 17:30 Assessment/Plan Problem List - Problems (1) Acute hypercapnic respiratory failure Code(s): J96.02 - ACUTE RESPIRATORY FAILURE WITH HYPERCAPNIA (2) Afib Code(s): I48.91 - UNSPECIFIED ATRIAL FIBRILLATION (3) CHF (congestive heart failure) Code(s): I50.9 - HEART FAILURE, UNSPECIFIED Qualifiers: Heart failure type: unspecified Heart failure chronicity: acute on chronic Qualified Code(s): I50.9 - Heart failure, unspecified (4) Hypercapnic respiratory failure Code(s): J96.92 - RESPIRATORY FAILURE, UNSPECIFIED WITH HYPERCAPNIA Qualifiers: Chronicity: acute Qualified Code(s): J96.02 - Acute respiratory failure with hypercapnia (5) UTI (urinary tract infection) Code(s): N39.0 - URINARY TRACT INFECTION, SITE NOT SPECIFIED Qualifiers: Urinary tract infection type: site unspecified Hematuria presence: without hematuria Qualified Code(s): N39.0 - Urinary tract infection, site not specified Assessment/Plan continue abx as planned nutrition rest as per the team
--- NOTE | 2018-05-24 13:34 | PN ---
Progress Note (short form) - Note Progress Note: s: no chest pain, palps, dizziness, dyspnea. Current Medications Albuterol Sulfate (Ventolin 0.083% Nebulizer Soln -) 1 amp NEB Q6H PRN PRN Reason: SHORT OF BREATH/WHEEZING Albuterol/Ipratropium (Duoneb -) 1 amp NEB RTID [facility] Last Admin: 05/24/18 13:07 Dose: 1 amp Amoxicillin/Clavulanate Potassium (Augmentin - 875mg Tablet) 1 tab PO BID@0800, 1730 [facility] Last Admin: 05/24/18 09:05 Dose: 1 tab Apixaban (Eliquis -) 5 mg PO BID [facility] Last Admin: 05/24/18 09:06 Dose: 5 mg Aspirin (Ecotrin -) 81 mg PO DAILY [facility] Last Admin: 05/24/18 09:06 Dose: 81 mg Atorvastatin Calcium (Lipitor -) 80 mg PO HS [facility] Last Admin: 05/23/18 21:14 Dose: 80 mg Budesonide (Pulmicort 0.5 Mg Nebulizer -) 1 amp NEB RBID [facility] Last Admin: 05/20/18 12:50 Dose: Not Given Docusate Sodium (Colace -) 100 mg PO BID [facility] Last Admin: 05/24/18 09:06 Dose: 100 mg Furosemide (Lasix -) 40 mg PO BID@0600,1400 [facility] Last Admin: 05/24/18 14:00 Dose: 40 mg Insulin Detemir (Levemir Vial) 25 units SQ DAILY@0700 [facility] Last Admin: 05/24/18 06:22 Dose: 25 units Levothyroxine Sodium (Synthroid -) 75 mcg PO DAILY@0700 [facility] Last Admin: 05/24/18 06:22 Dose: 75 mcg Magnesium Oxide (Mag-Ox -) 400 mg PO BID [facility] Last Admin: 05/24/18 09:06 Dose: 400 mg Metoprolol Tartrate (Lopressor -) 25 mg PO BID [facility] Last Admin: 05/24/18 09:06 Dose: 25 mg Multivitamins/Minerals/Vitamin C (Tab-A-Vit -) 1 tab PO DAILY [facility] Last Admin: 05/24/18 09:06 Dose: 1 tab Nystatin (Mycostatin Cream -) 1 applic TP BID [facility] Last Admin: 05/24/18 09:07 Dose: 1 applic Pantoprazole Sodium (Protonix -) 40 mg PO DAILY [facility] Last Admin: 05/24/18 09:06 Dose: 40 mg Polyethylene Glycol (Miralax (For Daily Use) -) 17 gm PO DAILY [facility] Last Admin: 05/24/18 09:07 Dose: 17 grams Potassium Chloride (K-Dur -) 20 meq PO DAILY [facility] Last Admin: 05/24/18 09:06 Dose: 20 meq - Objective Vital Signs: Vital Signs Period Temp Pulse Resp BP Sys/Paz Pulse Ox Last 24 Hr 97.8 F-98.3 F 83-97 18-20 94-122/52-79 90-97 Constitutional: Yes: Well Nourished, No Distress, Calm Cardiovascular: Yes: Pulse Irregular, S1, S2. No: JVD, Gallop, Murmur Respiratory: Yes: Regular. No: CTA Bilaterally, Accessory Muscle Use, Rales, Wheezes Extremities: No: Cold Edema: No Neurological: Yes: Alert. No: Seizure Psychiatric: No: Agitated Assessment/Plan echo 05/2018: lvh, nl lvef, nl rv, lae, mild ar/tr/mr, mod as cxr: chf ecg: afib, rate controlled, irbbb tele: afib, rate controlled a/p: 83 m hx htn, hld, afib, dchf, copd, [place]. sob, acute diastolic chf: -cxr with congestive changes, BNP 1400 (no priors) -no signs ACS -receiving lasix 40 iv bid. -05/22: wt down. renal fxn stable, bicarb up. appears euvolemic. denies sob. same lasix today--rpt CXR and BMP in am, suspect will be ready to transition to PO lasix tomorrow -05/23: No weight today but down yesterday, BUN/Creat stable, bicarb up to 41. No CXR this AM. Will transition to PO lasix today - 05/24 weight, no dyspnea. continue lasix 40 mg PO BID. htn: -soft at times -cont bb, observe trend afib: -rates controlled--cont bb as doing -cont eliquis hld: -cont statin mod as: -grad 56/33, MACY 1.1--all concordant in moderate range -outpt monitoring hypothyroid: -TSH 20 -per pmd
[2018-05-24] MEDS: ATORVASTATIN CA 80 MG TABLET (FP) PO SCH (21:07)
[2018-05-25] MEDS: FUROSEMIDE 40 MG TABLET (FP) PO SCH ×2 (06:06→13:44)
[2018-05-25] MEDS: LEVOTHYROXINE NA 75 MCG TABLET (FP) PO SCH (06:06)
[2018-05-25] MEDS: INSULIN (LEVEMIR) 100 UNITS/ML UNITS SQ SCH (06:10)
[2018-05-25] MEDS: ALBUTEROL SO4 2.5/IPRATROPIUM 0.5 INH SOL 3 ML VIAL.NEB. NEB SCH ×2 (08:23→14:55)
[2018-05-25] MEDS: POTASSIUM CHLORIDE TABS 20 MEQ TABLET.ER (FP) PO SCH (09:30)
[2018-05-25] MEDS: MAGNESIUM OXIDE 400 MG TABLET (FP) PO SCH ×2 (09:30→21:24)
[2018-05-25] MEDS: MULTIVITAMINS (DAILY MVI) TABLET (FP) PO SCH (09:30)
[2018-05-25] MEDS: AMOX TR/POT CLAV 875MG/125MG TABLETS (FP) PO SCH (09:30)
[2018-05-25] MEDS: PANTOPRAZOLE 40 MG TABLET (FP) PO SCH (09:30)
[2018-05-25] MEDS: ASPIRIN COATED 81 MG TABLET.EC PO SCH (09:30)
[2018-05-25] MEDS: DOCUSATE SODIUM 100 MG CAPSULE (FP) PO SCH ×2 (09:30→21:24)
[2018-05-25] MEDS: METOPROLOL TARTRATE 25 MG TABLET (FP) PO SCH ×2 (09:31→21:24)
[2018-05-25] MEDS: POLYETHYLENE GLYCOL 3350 119 GM BTL PO SCH (09:33)
[2018-05-25] MEDS: NYSTATIN 100,000 UNIT/GM TOPICAL CREAM 15 GM TUBE TP SCH ×2 (09:33→21:44)
[2018-05-25] MEDS: APIXABAN 5 MG TABLET PO SCH ×2 (09:33→21:24)
--- NOTE | 2018-05-25 10:35 | PN ---
Progress Note, Physician History of Present Illness: pulmonary alert,no distress,-sob - Current Medication List Current Medications: Active Medications Albuterol/Ipratropium (Duoneb -) 1 amp NEB RTID [facility] Last Admin: 05/25/18 08:23 Dose: 1 amp Amoxicillin/Clavulanate Potassium (Augmentin - 875mg Tablet) 1 tab PO BID@0800, 1730 [facility] Last Admin: 05/25/18 09:30 Dose: 1 tab Apixaban (Eliquis -) 5 mg PO BID [facility] Last Admin: 05/25/18 09:33 Dose: 5 mg Aspirin (Ecotrin -) 81 mg PO DAILY [facility] Last Admin: 05/25/18 09:30 Dose: 81 mg Atorvastatin Calcium (Lipitor -) 80 mg PO HS [facility] Last Admin: 05/24/18 21:07 Dose: 80 mg Budesonide (Pulmicort 0.5 Mg Nebulizer -) 1 amp NEB RBID [facility] Last Admin: 05/20/18 12:50 Dose: Not Given Docusate Sodium (Colace -) 100 mg PO BID [facility] Last Admin: 05/25/18 09:30 Dose: 100 mg Furosemide (Lasix -) 40 mg PO BID@0600,1400 [facility] Last Admin: 05/25/18 06:06 Dose: 40 mg Insulin Detemir (Levemir Vial) 25 units SQ DAILY@0700 [facility] Last Admin: 05/25/18 06:10 Dose: 25 units Levothyroxine Sodium (Synthroid -) 75 mcg PO DAILY@0700 [facility] Last Admin: 05/25/18 06:06 Dose: 75 mcg Magnesium Oxide (Mag-Ox -) 400 mg PO BID [facility] Last Admin: 05/25/18 09:30 Dose: 400 mg Metoprolol Tartrate (Lopressor -) 25 mg PO BID [facility] Last Admin: 05/25/18 09:31 Dose: 25 mg Multivitamins/Minerals/Vitamin C (Tab-A-Vit -) 1 tab PO DAILY [facility] Last Admin: 05/25/18 09:30 Dose: 1 tab Nystatin (Mycostatin Cream -) 1 applic TP BID [facility] Last Admin: 05/25/18 09:33 Dose: 1 applic Pantoprazole Sodium (Protonix -) 40 mg PO DAILY [facility] Last Admin: 05/25/18 09:30 Dose: 40 mg Polyethylene Glycol (Miralax (For Daily Use) -) 17 gm PO DAILY [facility] Last Admin: 05/25/18 09:33 Dose: 17 grams Potassium Chloride (K-Dur -) 20 meq PO DAILY [facility] Last Admin: 05/25/18 09:30 Dose: 20 meq - Objective Vital Signs: Vital Signs Temperature 98 F 05/25/18 08:58 Pulse Rate 95 H 05/25/18 05:53 Respiratory Rate 18 05/25/18 08:58 Blood Pressure 108/56 L 05/25/18 08:58 O2 Sat by Pulse Oximetry (%) 96 05/25/18 09:23 Constitutional: Yes: Well Nourished, Calm Eyes: Yes: WNL HENT: Yes: WNL Neck: Yes: WNL Cardiovascular: Yes: Regular Rate and Rhythm, S1, S2 Respiratory: Yes: Diminished Gastrointestinal: Yes: Normal Bowel Sounds, Soft Extremities: Yes: WNL Edema: No Labs: CBC, BMP Problem List - Problems (1) Afib Code(s): I48.91 - UNSPECIFIED ATRIAL FIBRILLATION Assessment/Plan Problem List - Problems (1) Acute hypercapnic respiratory failure Code(s): J96.02 - ACUTE RESPIRATORY FAILURE WITH HYPERCAPNIA (2) CHF (congestive heart failure) Code(s): I50.9 - HEART FAILURE, UNSPECIFIED (3) UTI (urinary tract infection) Code(s): N39.0 - URINARY TRACT INFECTION, SITE NOT SPECIFIED Assessment/Plan Decompensated CHF clinically improved Acute Hypercapneic Respiratory Failure UTI COPD Atrial Fibrillation HTN Hypthyroid - lasix - monitor urine output, creatinine - daily weights - inhaled bronchodilators - antibiotics for UTI - rate control - eliquis - O2 to keep Spo2 >90% DR SAUCEDA
--- NOTE | 2018-05-25 11:45 | PN ---
Progress Note (short form) - Note Progress Note: s: no chest pain, palps, dizziness, dyspnea. Current Medications Albuterol/Ipratropium (Duoneb -) 1 amp NEB RTID [facility] Last Admin: 05/25/18 08:23 Dose: 1 amp Amoxicillin/Clavulanate Potassium (Augmentin - 875mg Tablet) 1 tab PO BID@0800, 1730 [facility] Last Admin: 05/25/18 09:30 Dose: 1 tab Apixaban (Eliquis -) 5 mg PO BID [facility] Last Admin: 05/25/18 09:33 Dose: 5 mg Aspirin (Ecotrin -) 81 mg PO DAILY [facility] Last Admin: 05/25/18 09:30 Dose: 81 mg Atorvastatin Calcium (Lipitor -) 80 mg PO HS [facility] Last Admin: 05/24/18 21:07 Dose: 80 mg Budesonide (Pulmicort 0.5 Mg Nebulizer -) 1 amp NEB RBID [facility] Last Admin: 05/20/18 12:50 Dose: Not Given Docusate Sodium (Colace -) 100 mg PO BID [facility] Last Admin: 05/25/18 09:30 Dose: 100 mg Furosemide (Lasix -) 40 mg PO BID@0600,1400 [facility] Last Admin: 05/25/18 06:06 Dose: 40 mg Insulin Detemir (Levemir Vial) 25 units SQ DAILY@0700 [facility] Last Admin: 05/25/18 06:10 Dose: 25 units Levothyroxine Sodium (Synthroid -) 75 mcg PO DAILY@0700 [facility] Last Admin: 05/25/18 06:06 Dose: 75 mcg Magnesium Oxide (Mag-Ox -) 400 mg PO BID [facility] Last Admin: 05/25/18 09:30 Dose: 400 mg Metoprolol Tartrate (Lopressor -) 25 mg PO BID [facility] Last Admin: 05/25/18 09:31 Dose: 25 mg Multivitamins/Minerals/Vitamin C (Tab-A-Vit -) 1 tab PO DAILY [facility] Last Admin: 05/25/18 09:30 Dose: 1 tab Nystatin (Mycostatin Cream -) 1 applic TP BID [facility] Last Admin: 05/25/18 09:33 Dose: 1 applic Pantoprazole Sodium (Protonix -) 40 mg PO DAILY [facility] Last Admin: 05/25/18 09:30 Dose: 40 mg Polyethylene Glycol (Miralax (For Daily Use) -) 17 gm PO DAILY [facility] Last Admin: 05/25/18 09:33 Dose: 17 grams Potassium Chloride (K-Dur -) 20 meq PO DAILY [facility] Last Admin: 05/25/18 09:30 Dose: 20 meq Vital Signs Period Temp Pulse Resp BP Sys/Paz Pulse Ox Last 24 Hr 98 F-98.3 F 82-96 18-20 99-130/50-59 96-97 Constitutional: Yes: Well Nourished, No Distress, Calm Cardiovascular: Yes: Pulse Irregular, S1, S2. No: JVD, Gallop, Murmur Respiratory: Yes: Regular. No: CTA Bilaterally, Accessory Muscle Use, Rales, Wheezes Extremities: No: Cold Edema: No Neurological: Yes: Alert. No: Seizure Psychiatric: No: Agitated Assessment/Plan echo 05/2018: lvh, nl lvef, nl rv, lae, mild ar/tr/mr, mod as cxr: chf ecg: afib, rate controlled, irbbb a/p: 83 m hx htn, hld, afib, dchf, copd, sent [place]. sob, acute diastolic chf: -cxr with congestive changes, BNP 1400 (no priors) -no signs ACS -receiving lasix 40 iv bid. -05/22: wt down. renal fxn stable, bicarb up. appears euvolemic. denies sob. same lasix today--rpt CXR and BMP in am, suspect will be ready to transition to PO lasix tomorrow -05/23: No weight today but down yesterday, BUN/Creat stable, bicarb up to 41. No CXR this AM. Will transition to PO lasix today - 05/24-16: continue lasix 40 mg PO BID. htn: -soft at times -cont bb, observe trend afib: -rates controlled--cont bb as doing -cont eliquis hld: -cont statin mod as: -grad 56/33, MACY 1.1--all concordant in moderate range -outpt monitoring hypothyroid: -TSH 72 -per pmd
[2018-05-25] MEDS ORDERED: BISACODYL 10 MG SUPP.RECT PR ONE (13:27)
--- NOTE | 2018-05-25 13:27 | PN ---
Progress Note (short form) - Note Progress Note: Feels fine Pleasant No chest pain or SOB no dysuria terrell removed this AM - no urine output yet no bm x 4 days no abd pain Vital Signs - 24 hr 05/24/18 05/24/18 05/24/18 18:00 19:48 21:05 Temperature 98.0 F 98.3 F Pulse Rate 82 93 H Respiratory 20 20 Rate Blood Pressure 99/50 L 130/59 L O2 Sat by Pulse 97 Oximetry (%) 05/25/18 05/25/18 05/25/18 02:00 05:53 08:58 Temperature 98.2 F 98 F Pulse Rate 96 H 95 H Respiratory 18 20 18 Rate Blood Pressure 107/58 L 108/56 L O2 Sat by Pulse Oximetry (%) 05/25/18 09:23 Temperature Pulse Rate Respiratory Rate Blood Pressure O2 Sat by Pulse 96 Oximetry (%) Current Medications Generic Name Dose Route Start Last Admin Trade Name Freq PRN Reason Stop Dose Admin Albuterol/Ipratropium 1 amp 05/20/18 20:00 05/25/18 08:23 Duoneb - NEB 1 amp RTID MELLISSA Administration Apixaban 5 mg 05/19/18 22:00 05/25/18 09:33 Eliquis - PO 5 mg BID MELLISSA Administration Aspirin 81 mg 05/20/18 10:00 05/25/18 09:30 Ecotrin - PO 81 mg DAILY MELLISSA Administration Atorvastatin Calcium 80 mg 05/19/18 22:00 05/24/18 21:07 Lipitor - PO 80 mg HS MELLISSA Administration Bisacodyl 10 mg 05/25/18 13:27 Dulcolax Suppository - SC 05/25/18 13:28 ONCE ONE Budesonide 1 amp 05/20/18 08:00 05/20/18 12:50 Pulmicort 0.5 Mg Nebulizer - NEB Not Given RBID MELLISSA Docusate Sodium 100 mg 05/19/18 22:00 05/25/18 09:30 Colace - PO 100 mg BID MELLISSA Administration Furosemide 40 mg 05/23/18 14:00 05/25/18 06:06 Lasix - PO 40 mg BID@0600,1400 MELLISSA Administration Insulin Detemir 25 units 05/20/18 07:00 05/25/18 06:10 Levemir Vial SQ 25 units DAILY@0700 MELLISSA Administration Levothyroxine Sodium 75 mcg 05/24/18 07:00 05/25/18 06:06 Synthroid - PO 75 mcg DAILY@0700 MELLISSA Administration Magnesium Oxide 400 mg 05/19/18 22:00 05/25/18 09:30 Mag-Ox - PO 400 mg BID MELLISSA Administration Metoprolol Tartrate 25 mg 05/19/18 22:00 05/25/18 09:31 Lopressor - PO 25 mg BID MELLISSA Administration Multivitamins/Minerals/Vitamin C 1 tab 05/20/18 10:00 05/25/18 09:30 Tab-A-Vit - PO 1 tab DAILY MELLISSA Administration Nystatin 1 applic 05/19/18 22:00 05/25/18 09:33 Mycostatin Cream - TP 1 applic BID MELLISSA Administration Pantoprazole Sodium 40 mg 05/20/18 10:00 05/25/18 09:30 Protonix - PO 40 mg DAILY MELLISSA Administration Polyethylene Glycol 17 gm 05/23/18 10:15 05/25/18 09:33 Miralax (For Daily Use) - PO 17 grams DAILY MELLISSA Administration Potassium Chloride 20 meq 05/20/18 10:00 05/25/18 09:30 K-Dur - PO 20 meq DAILY MELLISSA Administration Laboratory Results - last 24 hr 05/25/18 05:28 POC Glucometer 222 S1 S2 Irregular Lungs better heard breath sounds,crackles decreased JVD+ Abd- soft, NT, obese, peg tube+ no edema PLAN CHF decompensation UTI HYPOXIC HYPERCAPNEIC RESP FAILURE -BIPAP - po lasix - dc antibiotics-- completed -- cultures noted- Ecoli in urine -- continue with meds -- pt clinically improved with BIPAP and lasix -- DNR/DNI -- has a feeding tube paced a couple of weeks ago-- now he is eating well by mouth , has good po intake -- increase synthroid -- dc planning -- nephew wants him in another NH -- dulcolox suppository -- monitor urine output -- spoke with nephew at length-- pt is being considered for AV repair at [facility] -- dc planning when bed is available Problem List - Problems (1) CHF (congestive heart failure) Code(s): I50.9 - HEART FAILURE, UNSPECIFIED Qualifiers: Heart failure type: unspecified Heart failure chronicity: acute on chronic Qualified Code(s): I50.9 - Heart failure, unspecified (2) Hypercapnic respiratory failure Code(s): J96.92 - RESPIRATORY FAILURE, UNSPECIFIED WITH HYPERCAPNIA Qualifiers: Chronicity: acute Qualified Code(s): J96.02 - Acute respiratory failure with hypercapnia (3) UTI (urinary tract infection) Code(s): N39.0 - URINARY TRACT INFECTION, SITE NOT SPECIFIED Qualifiers: Urinary tract infection type: site unspecified Hematuria presence: without hematuria Qualified Code(s): N39.0 - Urinary tract infection, site not specified
[2018-05-25] MEDS: ATORVASTATIN CA 80 MG TABLET (FP) PO SCH (21:24)
[2018-05-26] MEDS: FUROSEMIDE 40 MG TABLET (FP) PO SCH ×2 (06:20→14:18)
[2018-05-26] MEDS: LEVOTHYROXINE NA 75 MCG TABLET (FP) PO SCH (06:20)
[2018-05-26] MEDS: INSULIN (LEVEMIR) 100 UNITS/ML UNITS SQ SCH (06:20)
[2018-05-26] MEDS: POTASSIUM CHLORIDE TABS 20 MEQ TABLET.ER (FP) PO SCH (09:40)
[2018-05-26] MEDS: DOCUSATE SODIUM 100 MG CAPSULE (FP) PO SCH (09:40)
[2018-05-26] MEDS: MULTIVITAMINS (DAILY MVI) TABLET (FP) PO SCH (09:40)
[2018-05-26] MEDS: MAGNESIUM OXIDE 400 MG TABLET (FP) PO SCH (09:40)
[2018-05-26] MEDS: APIXABAN 5 MG TABLET PO SCH (09:40)
[2018-05-26] MEDS: METOPROLOL TARTRATE 25 MG TABLET (FP) PO SCH (09:40)
[2018-05-26] MEDS: PANTOPRAZOLE 40 MG TABLET (FP) PO SCH (09:40)
[2018-05-26] MEDS: ASPIRIN COATED 81 MG TABLET.EC PO SCH (09:40)
[2018-05-26] MEDS: POLYETHYLENE GLYCOL 3350 119 GM BTL PO SCH (09:43)
--- NOTE | 2018-05-26 09:53 | PN ---
Progress Note, Physician History of Present Illness: stable no new issues - Current Medication List Current Medications: Active Medications Apixaban (Eliquis -) 5 mg PO BID [facility] Last Admin: 05/26/18 09:40 Dose: 5 mg Aspirin (Ecotrin -) 81 mg PO DAILY [facility] Last Admin: 05/26/18 09:40 Dose: 81 mg Atorvastatin Calcium (Lipitor -) 80 mg PO HS [facility] Last Admin: 05/25/18 21:24 Dose: 80 mg Budesonide (Pulmicort 0.5 Mg Nebulizer -) 1 amp NEB RBID [facility] Last Admin: 05/20/18 12:50 Dose: Not Given Docusate Sodium (Colace -) 100 mg PO BID [facility] Last Admin: 05/26/18 09:40 Dose: 100 mg Furosemide (Lasix -) 40 mg PO BID@0600,1400 [facility] Last Admin: 05/26/18 06:20 Dose: 40 mg Insulin Detemir (Levemir Vial) 25 units SQ DAILY@0700 [facility] Last Admin: 05/26/18 06:20 Dose: 25 units Levothyroxine Sodium (Synthroid -) 75 mcg PO DAILY@0700 [facility] Last Admin: 05/26/18 06:20 Dose: 75 mcg Magnesium Oxide (Mag-Ox -) 400 mg PO BID [facility] Last Admin: 05/26/18 09:40 Dose: 400 mg Metoprolol Tartrate (Lopressor -) 25 mg PO BID [facility] Last Admin: 05/26/18 09:40 Dose: 25 mg Multivitamins/Minerals/Vitamin C (Tab-A-Vit -) 1 tab PO DAILY [facility] Last Admin: 05/26/18 09:40 Dose: 1 tab Nystatin (Mycostatin Cream -) 1 applic TP BID [facility] Last Admin: 05/25/18 21:44 Dose: 1 applic Pantoprazole Sodium (Protonix -) 40 mg PO DAILY [facility] Last Admin: 05/26/18 09:40 Dose: 40 mg Polyethylene Glycol (Miralax (For Daily Use) -) 17 gm PO DAILY [facility] Last Admin: 05/26/18 09:43 Dose: 17 grams Potassium Chloride (K-Dur -) 20 meq PO DAILY [facility] Last Admin: 05/26/18 09:40 Dose: 20 meq - Objective Vital Signs: Vital Signs Temperature 99.1 F 05/26/18 05:00 Pulse Rate 88 05/26/18 05:00 Respiratory Rate 20 05/26/18 05:00 Blood Pressure 112/52 L 05/26/18 05:00 O2 Sat by Pulse Oximetry (%) 98 05/25/18 22:24 Constitutional: Yes: No Distress, Calm Cardiovascular: Yes: S1, S2 Respiratory: Yes: Regular, CTA Bilaterally Gastrointestinal: Yes: Normal Bowel Sounds, Soft Musculoskeletal: Yes: WNL Extremities: Yes: WNL Neurological: Yes: Alert Psychiatric: Yes: Alert Labs: CBC, BMP 05/21/18 10:55 05/23/18 05:40 INR, PTT INR 1.48 (0.83-1.09) H 05/19/18 17:30 Assessment/Plan Problem List - Problems (1) Acute hypercapnic respiratory failure Code(s): J96.02 - ACUTE RESPIRATORY FAILURE WITH HYPERCAPNIA (2) Afib Code(s): I48.91 - UNSPECIFIED ATRIAL FIBRILLATION (3) CHF (congestive heart failure) Code(s): I50.9 - HEART FAILURE, UNSPECIFIED Qualifiers: Heart failure type: unspecified Heart failure chronicity: acute on chronic Qualified Code(s): I50.9 - Heart failure, unspecified (4) Hypercapnic respiratory failure Code(s): J96.92 - RESPIRATORY FAILURE, UNSPECIFIED WITH HYPERCAPNIA Qualifiers: Chronicity: acute Qualified Code(s): J96.02 - Acute respiratory failure with hypercapnia (5) UTI (urinary tract infection) Code(s): N39.0 - URINARY TRACT INFECTION, SITE NOT SPECIFIED Qualifiers: Urinary tract infection type: site unspecified Hematuria presence: without hematuria Qualified Code(s): N39.0 - Urinary tract infection, site not specified Assessment/Plan stable off of abx rest as per the team comfortable
--- NOTE | 2018-05-26 09:55 | PN ---
Progress Note, Physician History of Present Illness: stable no new issues - Current Medication List Current Medications: Active Medications Apixaban (Eliquis -) 5 mg PO BID [facility] Last Admin: 05/26/18 09:40 Dose: 5 mg Aspirin (Ecotrin -) 81 mg PO DAILY [facility] Last Admin: 05/26/18 09:40 Dose: 81 mg Atorvastatin Calcium (Lipitor -) 80 mg PO HS [facility] Last Admin: 05/25/18 21:24 Dose: 80 mg Budesonide (Pulmicort 0.5 Mg Nebulizer -) 1 amp NEB RBID [facility] Last Admin: 05/20/18 12:50 Dose: Not Given Docusate Sodium (Colace -) 100 mg PO BID [facility] Last Admin: 05/26/18 09:40 Dose: 100 mg Furosemide (Lasix -) 40 mg PO BID@0600,1400 [facility] Last Admin: 05/26/18 06:20 Dose: 40 mg Insulin Detemir (Levemir Vial) 25 units SQ DAILY@0700 [facility] Last Admin: 05/26/18 06:20 Dose: 25 units Levothyroxine Sodium (Synthroid -) 75 mcg PO DAILY@0700 [facility] Last Admin: 05/26/18 06:20 Dose: 75 mcg Magnesium Oxide (Mag-Ox -) 400 mg PO BID [facility] Last Admin: 05/26/18 09:40 Dose: 400 mg Metoprolol Tartrate (Lopressor -) 25 mg PO BID [facility] Last Admin: 05/26/18 09:40 Dose: 25 mg Multivitamins/Minerals/Vitamin C (Tab-A-Vit -) 1 tab PO DAILY [facility] Last Admin: 05/26/18 09:40 Dose: 1 tab Nystatin (Mycostatin Cream -) 1 applic TP BID [facility] Last Admin: 05/25/18 21:44 Dose: 1 applic Pantoprazole Sodium (Protonix -) 40 mg PO DAILY [facility] Last Admin: 05/26/18 09:40 Dose: 40 mg Polyethylene Glycol (Miralax (For Daily Use) -) 17 gm PO DAILY [facility] Last Admin: 05/26/18 09:43 Dose: 17 grams Potassium Chloride (K-Dur -) 20 meq PO DAILY [facility] Last Admin: 05/26/18 09:40 Dose: 20 meq - Objective Vital Signs: Vital Signs Temperature 99.1 F 05/26/18 05:00 Pulse Rate 88 05/26/18 05:00 Respiratory Rate 20 05/26/18 05:00 Blood Pressure 112/52 L 05/26/18 05:00 O2 Sat by Pulse Oximetry (%) 98 05/25/18 22:24 Constitutional: Yes: No Distress, Calm Cardiovascular: Yes: S1, S2 Respiratory: Yes: Regular, CTA Bilaterally Gastrointestinal: Yes: Normal Bowel Sounds, Soft Musculoskeletal: Yes: WNL Extremities: Yes: WNL Neurological: Yes: Alert Psychiatric: Yes: Alert Labs: CBC, BMP 05/21/18 10:55 05/23/18 05:40 INR, PTT INR 1.48 (0.83-1.09) H 05/19/18 17:30 Assessment/Plan Problem List - Problems (1) Acute hypercapnic respiratory failure Code(s): J96.02 - ACUTE RESPIRATORY FAILURE WITH HYPERCAPNIA (2) Afib Code(s): I48.91 - UNSPECIFIED ATRIAL FIBRILLATION (3) CHF (congestive heart failure) Code(s): I50.9 - HEART FAILURE, UNSPECIFIED Qualifiers: Heart failure type: unspecified Heart failure chronicity: acute on chronic Qualified Code(s): I50.9 - Heart failure, unspecified (4) Hypercapnic respiratory failure Code(s): J96.92 - RESPIRATORY FAILURE, UNSPECIFIED WITH HYPERCAPNIA Qualifiers: Chronicity: acute Qualified Code(s): J96.02 - Acute respiratory failure with hypercapnia (5) UTI (urinary tract infection) Code(s): N39.0 - URINARY TRACT INFECTION, SITE NOT SPECIFIED Qualifiers: Urinary tract infection type: site unspecified Hematuria presence: without hematuria Qualified Code(s): N39.0 - Urinary tract infection, site not specified Assessment/Plan stable off of abx rest as per the team comfortable
[2018-05-26] MEDS: NYSTATIN 100,000 UNIT/GM TOPICAL CREAM 15 GM TUBE TP SCH (10:19)
--- NOTE | 2018-05-26 10:42 | PN ---
Progress Note (short form) - Note Progress Note: s: no chest pain, palps, dizziness, dyspnea. Current Medications Apixaban (Eliquis -) 5 mg PO BID [facility] Last Admin: 05/26/18 09:40 Dose: 5 mg Aspirin (Ecotrin -) 81 mg PO DAILY [facility] Last Admin: 05/26/18 09:40 Dose: 81 mg Atorvastatin Calcium (Lipitor -) 80 mg PO HS [facility] Last Admin: 05/25/18 21:24 Dose: 80 mg Budesonide (Pulmicort 0.5 Mg Nebulizer -) 1 amp NEB RBID [facility] Last Admin: 05/20/18 12:50 Dose: Not Given Docusate Sodium (Colace -) 100 mg PO BID [facility] Last Admin: 05/26/18 09:40 Dose: 100 mg Furosemide (Lasix -) 40 mg PO BID@0600,1400 [facility] Last Admin: 05/26/18 06:20 Dose: 40 mg Insulin Detemir (Levemir Vial) 25 units SQ DAILY@0700 [facility] Last Admin: 05/26/18 06:20 Dose: 25 units Levothyroxine Sodium (Synthroid -) 75 mcg PO DAILY@0700 [facility] Last Admin: 05/26/18 06:20 Dose: 75 mcg Magnesium Oxide (Mag-Ox -) 400 mg PO BID [facility] Last Admin: 05/26/18 09:40 Dose: 400 mg Metoprolol Tartrate (Lopressor -) 25 mg PO BID [facility] Last Admin: 05/26/18 09:40 Dose: 25 mg Multivitamins/Minerals/Vitamin C (Tab-A-Vit -) 1 tab PO DAILY [facility] Last Admin: 05/26/18 09:40 Dose: 1 tab Nystatin (Mycostatin Cream -) 1 applic TP BID [facility] Last Admin: 05/25/18 21:44 Dose: 1 applic Pantoprazole Sodium (Protonix -) 40 mg PO DAILY [facility] Last Admin: 05/26/18 09:40 Dose: 40 mg Polyethylene Glycol (Miralax (For Daily Use) -) 17 gm PO DAILY [facility] Last Admin: 05/26/18 09:43 Dose: 17 grams Potassium Chloride (K-Dur -) 20 meq PO DAILY [facility] Last Admin: 05/26/18 09:40 Dose: 20 meq Vital Signs Period Temp Pulse Resp BP Sys/Paz Pulse Ox Last 24 Hr 98.2 F-99.1 F 83-99 18-20 99-112/52-76 98-100 Constitutional: Yes: Well Nourished, No Distress, Calm Cardiovascular: Yes: Pulse Irregular, S1, S2. No: JVD, Gallop, Murmur Respiratory: Yes: Regular. No: CTA Bilaterally, Accessory Muscle Use, Rales, Wheezes Extremities: No: Cold Edema: No Neurological: Yes: Alert. No: Seizure Psychiatric: No: Agitated Assessment/Plan echo 05/2018: lvh, nl lvef, nl rv, lae, mild ar/tr/mr, mod as cxr: chf ecg: afib, rate controlled, irbbb a/p: 83 m hx htn, hld, afib, dchf, copd, [place]. sob, acute diastolic chf: -cxr with congestive changes, BNP 1400 (no priors) -no signs ACS -receiving lasix 40 iv bid. -05/22: wt down. renal fxn stable, bicarb up. appears euvolemic. denies sob. same lasix today--rpt CXR and BMP in am, suspect will be ready to transition to PO lasix tomorrow -05/23: No weight today but down yesterday, BUN/Creat stable, bicarb up to 41. No CXR this AM. Will transition to PO lasix today - 05/24-17: continue lasix 40 mg PO BID. htn: -soft at times -cont bb, observe trend afib: -rates controlled--cont bb as doing -cont eliquis hld: -cont statin mod as: -grad 56/33, MACY 1.1--all concordant in moderate range -outpt monitoring hypothyroid: -TSH 72 -per pmd
--- NOTE | 2018-05-26 11:01 | PN ---
Progress Note, Physician History of Present Illness: pulmonary alert,no distress,-sob,-cp - Current Medication List Current Medications: Active Medications Apixaban (Eliquis -) 5 mg PO BID [facility] Last Admin: 05/26/18 09:40 Dose: 5 mg Aspirin (Ecotrin -) 81 mg PO DAILY [facility] Last Admin: 05/26/18 09:40 Dose: 81 mg Atorvastatin Calcium (Lipitor -) 80 mg PO HS [facility] Last Admin: 05/25/18 21:24 Dose: 80 mg Budesonide (Pulmicort 0.5 Mg Nebulizer -) 1 amp NEB RBID [facility] Last Admin: 05/20/18 12:50 Dose: Not Given Docusate Sodium (Colace -) 100 mg PO BID [facility] Last Admin: 05/26/18 09:40 Dose: 100 mg Furosemide (Lasix -) 40 mg PO BID@0600,1400 [facility] Last Admin: 05/26/18 06:20 Dose: 40 mg Insulin Detemir (Levemir Vial) 25 units SQ DAILY@0700 [facility] Last Admin: 05/26/18 06:20 Dose: 25 units Levothyroxine Sodium (Synthroid -) 75 mcg PO DAILY@0700 [facility] Last Admin: 05/26/18 06:20 Dose: 75 mcg Magnesium Oxide (Mag-Ox -) 400 mg PO BID [facility] Last Admin: 05/26/18 09:40 Dose: 400 mg Metoprolol Tartrate (Lopressor -) 25 mg PO BID [facility] Last Admin: 05/26/18 09:40 Dose: 25 mg Multivitamins/Minerals/Vitamin C (Tab-A-Vit -) 1 tab PO DAILY [facility] Last Admin: 05/26/18 09:40 Dose: 1 tab Nystatin (Mycostatin Cream -) 1 applic TP BID [facility] Last Admin: 05/25/18 21:44 Dose: 1 applic Pantoprazole Sodium (Protonix -) 40 mg PO DAILY [facility] Last Admin: 05/26/18 09:40 Dose: 40 mg Polyethylene Glycol (Miralax (For Daily Use) -) 17 gm PO DAILY [facility] Last Admin: 05/26/18 09:43 Dose: 17 grams Potassium Chloride (K-Dur -) 20 meq PO DAILY [facility] Last Admin: 05/26/18 09:40 Dose: 20 meq - Objective Vital Signs: Vital Signs Temperature 99.1 F 05/26/18 05:00 Pulse Rate 88 05/26/18 05:00 Respiratory Rate 20 05/26/18 05:00 Blood Pressure 112/52 L 05/26/18 05:00 O2 Sat by Pulse Oximetry (%) 98 05/25/18 22:24 Constitutional: Yes: Well Nourished, Calm Eyes: Yes: WNL HENT: Yes: WNL Neck: Yes: WNL Cardiovascular: Yes: Pulse Irregular, S1, S2 Respiratory: Yes: Diminished Gastrointestinal: Yes: Normal Bowel Sounds, Soft Extremities: Yes: WNL Edema: No Labs: CBC, BMP 05/21/18 10:55 05/23/18 05:40 INR, PTT INR 1.48 (0.83-1.09) H 05/19/18 17:30 Problem List - Problems (1) Afib Code(s): I48.91 - UNSPECIFIED ATRIAL FIBRILLATION Assessment/Plan Problem List - Problems (1) Acute hypercapnic respiratory failure Code(s): J96.02 - ACUTE RESPIRATORY FAILURE WITH HYPERCAPNIA (2) CHF (congestive heart failure) Code(s): I50.9 - HEART FAILURE, UNSPECIFIED (3) UTI (urinary tract infection) Code(s): N39.0 - URINARY TRACT INFECTION, SITE NOT SPECIFIED Assessment/Plan Decompensated CHF clinically improved Acute Hypercapneic Respiratory Failure UTI COPD Atrial Fibrillation HTN Hypthyroid - lasix po - monitor urine output, creatinine - daily weights - inhaled bronchodilators - rate control - eliquis - O2 to keep Spo2 >90% DR SAUCEDA
--- NOTE | 2018-05-26 12:41 | DS ---
Physical Examination Vital Signs: Vital Signs Temperature 99.1 F 05/26/18 05:00 Pulse Rate 88 05/26/18 05:00 Respiratory Rate 20 05/26/18 05:00 Blood Pressure 112/52 L 05/26/18 05:00 O2 Sat by Pulse Oximetry (%) 98 05/25/18 22:24 Constitutional: Yes: No Distress, Calm Cardiovascular: Yes: Regular Rate and Rhythm Respiratory: Yes: Diminished Gastrointestinal: Yes: Normal Bowel Sounds, Soft. No: Tenderness Edema: No Labs: CBC, BMP 05/21/18 10:55 05/23/18 05:40 Discharge Summary Reason For Visit: CONGESTIVE HEART FAILURE ACUTE RESPIRATORY DISTRES Current Active Problems Acute hypercapnic respiratory failure (Acute) Afib (Acute) CHF (congestive heart failure) (Acute) Hypercapnic respiratory failure (Acute) UTI (urinary tract infection) (Acute) Hospital Course: Admitted for CHF decompensation, rapid Afib, hypoxic hypercapneic respiratory failure, UTI-- on iv antibiotics Was initially using BIPAP and now does not need BIPAP Pt was evaluated by Cardiology, Pulmonary and ID Pt completed iv antibiotics Now on PO Lasix BID-- diuresed well TSH is 72-- methimazole discontinued and started on Synthroid--advised to recheck TSH, free T4 levels and adjust synthroid accordingly Pt and nephew aware of plan for STR he will need STR and ultimately will be going to [facility] for AVR repair for after rehab peg tube in place-- does not use peg tube now-- it was recently put in [facility] when pt was admitted for CHF , hypotension. 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 [facility] Condition: Improved - Instructions Disposition: LONG-TERM FACILITY - Home Medications Comprehensive Discharge Medication List: Ambulatory Orders Acetaminophen [Tylenol] 650 mg PO QID PRN 05/19/18 Apixaban [Eliquis -] 5 mg PO BID 05/19/18 Aspirin [Aspirin EC] 81 mg PO DAILY 05/19/18 Atorvastatin Ca [Lipitor] 80 mg PO HS 05/19/18 Budesonide 1 mg IH BID 05/19/18 Docusate Sodium [Colace] 300 mg PO BID 05/19/18 Famotidine [Pepcid] 20 mg PO BID 05/19/18 Furosemide [Lasix] 40 mg PO BID 05/19/18 Insulin Aspart [Novolog] 0 unit SQ ASDIR 05/19/18 Insulin Glargine,Hum.rec.anlog [Lantus Solostar] 25 unit SQ DAILY 05/19/18 Magnesium 400 mg PO BID 05/19/18 Metoprolol Tartrate 25 mg PO BID 05/19/18 Multivitamin [Multiple Vitamins] 1 each PO DAILY 05/19/18 Nystatin Cream [Mycostatin Cream -] 1 applic TP BID 05/19/18 Potassium Chloride [K-Dur -] 20 meq PO DAILY 05/19/18 Sennosides [Senna] 17.2 mg PO BID 05/19/18 Furosemide [Lasix -] 40 mg PO BID@0600,1400 #60 tablet 05/25/18 Levothyroxine [Synthroid -] 75 mcg PO DAILY@0700 #14 tablet 05/25/18
[2018-05-26 15:28] VITALS: BP 117/60; PULSE 84; TEMP 98.1
== END 2018-05-26 17:25 | DRG 291 ==
LOC: JER 17:23 → JERBED 17:45 → J4W 05-20 19:41
PROVIDERS: ADMIT Internal Medicine; ATTEND Internal Medicine
DX: I11.0 Hypertensive heart disease with heart failure (principal); J96.02 Acute respiratory failure with hypercapnia; J96.01 Acute respiratory failure with hypoxia; N39.0 Urinary tract infection, site not specified; I50.33 Acute on chronic diastolic (congestive) heart failure; J44.9 Chronic obstructive pulmonary disease, unspecified; I35.0 Nonrheumatic aortic (valve) stenosis; K21.9 Gastro-esophageal reflux disease without esophagitis; I48.91 Unspecified atrial fibrillation; Z79.01 Long term (current) use of anticoagulants; I48.2 Chronic atrial fibrillation; E11.65 Type 2 diabetes mellitus with hyperglycemia; Z79.84 Long term (current) use of oral hypoglycemic drugs; Z66 Do not resuscitate; Z93.1 Gastrostomy status
CPT/HCPCS: 36415; 36600; 71045-TC-FY; 80048; 80053; 81003; 82375; 82550; 82803; 82962; 83036; 83050; 83605; 83735; 83880; 84439; 84443; 84484; 85025; 85610; 85730; 87040; 87086; 87186; 93005; 93010; 93306-TC; 94640; 94660; 97116-GP; 97162-GP; 99284-25